=== PATIENT | female | born 1960 | race Hispanic/Latino ===

== ENCOUNTER 2020-02-10 14:13 | Emergency (ER) | payer BC ==
[2020-02-10 15:12] LABS: APPEARANCE,URINE Clear (CLEAR); BILIRUBIN,URINE Negative (NEGATIVE); COLOR,URINE Yellow (YELLOW); GLUCOSE, URINE (UA) Negative (NEGATIVE); KETONES,URINE Negative (NEGATIVE); LEUKOCYTE ESTERASE ,URINE Negative (NEGATIVE); NITRATE,URINE Negative (NEGATIVE); OCCULT BLOOD,URINE Negative (NEGATIVE); PH,URINE 7.5 (5.0-8.0); PROTEIN,URINE POS 2+ mg/dL (NEGATIVE)
[2020-02-10 15:31] LABS: BACTERIA,URINE Rare /HPF (None Seen); RBC,URINE None Seen /HPF (0-1); SQUAMOUS EPITHELIAL CELL,UR None Seen /HPF (0-2); WBC,URINE 0-1 /HPF (0-1)
[2020-02-10] MEDS ORDERED: KETOROLAC TROMETHAMINE 30MG/ML ONE (15:35)
[2020-02-10 16:11] LABS: BASOPHILS % (AUTO) 0.5 % (0.0-5.0); HEMATOCRIT 37.4 % (36-48); LYMPHOCYTES % (AUTO) 11.6 % (21.0-51.0); MEAN CORPUSCULAR HEMOGLOBIN 33.4 pg (27.0-33.0); MEAN CORPUSCULAR HGB CONC 35.8 g/dL (32.0-36.0); MEAN CORPUSCULAR VOLUME 93.3 fL (79-99); MONOCYTES % (AUTO) 5.6 % (3.0-13.0); NEUTROPHILS % (AUTO) 80.8 % (40.0-77.0); PLATELET COUNT (AUTO) 125 K/uL (130-400); RED BLOOD CELL COUNT(AUTO) 4.01 MIL/uL (4.00-5.50); RED CELL DISTRIBUTION WIDTH 14.9 % (11.0-15.5); WHITE BLOOD COUNT (AUTO) 10.1 K/uL (4.8-10.8)
[2020-02-10 16:17] LABS: CREATININE 0.9 mg/dL (0.5-1.5); POTASSIUM 3.8 mmol/L (3.5-5.1)
[2020-02-10 16:21] LABS: ALBUMIN 3.7 g/dL (3.5-5.0); BILIRUBIN,TOTAL 0.5 mg/dL (0.2-1.0); TOTAL PROTEIN, SERUM 7.9 g/dL (6.0-8.3)
[2020-02-10] MEDS ORDERED: SODIUM CHLORIDE 0.9% 1000ML 1,000 ML IV ONE (17:27)
[2020-02-10] MEDS ORDERED: TAMSULOSIN HCL 0.4 MG CAP.ER.24H ONE (17:28)
== END 2020-02-10 19:03 | disposition home or self-care (01) ==
LOC: EDH 14:13
DX: N13.30 Unspecified hydronephrosis (principal)
CPT/HCPCS: 36415; 74176; 76705; 76770; 80053; 81001; 85025; 96360; 96372; 99285; J1885; J7030

== ENCOUNTER 2024-12-16 16:03 | Inpatient (IN) | payer BC ==
[~2024-12-16] VITALS: Ht 162.6 cm; Wt 129.7 kg
[2024-12-16 17:15] LABS: IMMATURE GRANULOCYTE ABSOLUTE 0.03 K/uL (0-1); NUCLEATED RED BLOOD CELLS 0.0 % (0.0-0.19); PLATELET COUNT (AUTO) 134 K/uL (130-400); RED BLOOD CELL COUNT(AUTO) 4.85 MIL/uL (4.00-5.50); RED CELL DISTRIBUTION WIDTH 13.6 % (11.0-15.5); WHITE BLOOD COUNT (AUTO) 7.7 K/uL (4.8-10.8)
[2024-12-16 17:30] LABS: CREATININE 0.9 mg/dL (0.5-1.0); GLOMERULAR FILTR. RATE CALC 71.0 mL/min (>90); GLUCOSE,RANDOM 90.0 mg/dL (70-105); SODIUM SERUM 141.0 mmol/L (136-145); UREA NITROGEN, BLOOD 14.0 mg/dL (7-18)
--- NOTE | 2024-12-16 17:31 | HMCIMG ---
EXAM: Chest radiograph 1 view HISTORY: Dizziness COMPARISON: None FINDINGS: No pulmonary consolidations. No pleural effusion or pneumothorax. Normal cardiomediastinal silhouette and pulmonary vasculature. No suspicious osseous lesions. IMPRESSION: No acute cardiopulmonary disease. /[place]
--- NOTE | 2024-12-16 19:15 | HMCIMG ---
EXAM: CT Head without IV Contrast. CLINICAL HISTORY: Dizziness. TECHNIQUE: Axial computed tomography images of the head/brain without intravenous contrast. COMPARISON: None provided. FINDINGS: BRAIN: No evidence of acute hemorrhage. No midline shift or extra-axial collections. Mild encephalomalacia with surrounding gliosis in the left temporal lobe. Ill-defined hypodensities with loss of olmedo-white matter differentiation in the bilateral frontal lobes. No CT evidence for an acute infarction. VENTRICLES: No hydrocephalus. ORBITS: The orbits are unremarkable. SINUSES AND MASTOIDS: The paranasal sinuses and mastoid air cells are clear. BONES: No fracture. SOFT TISSUES: Unremarkable. IMPRESSION: * No acute intracranial hemorrhage, or CT evidence for an acute infarct. If clinical concern persist recommend MRI of the brain for further evaluation. * Mild encephalomalacia with surrounding gliosis in the left temporal lobe, likely sequela of prior insult. * Ill-defined hypodensities in the bilateral frontal lobes with loss of olmedo-white matter differentiation, compatible chronic microvascular ischemic disease. /[place]
[2024-12-16] MEDS: 0.9%NACL 1000ML 1,000 ML IV ONE (19:57)
[2024-12-16] MEDS: ASPIRIN 325MG TAB PO ONE (20:07)
--- NOTE | 2024-12-16 21:18 | HP ---
[facility] HISTORY AND PHYSICAL Date of Service: Dec 16, 2024 Time of Service: 21:18 Attending/supervising physicians: Dr. Napoles and Dr. Bai HISTORY OF PRESENT ILLNESS: Ms. Ochoa is a 64-year-old female with a history of hypertension who presented to [facility] ED for evaluation of dizziness onset Sunday night. She stated that the symptoms improved but then around 1:00pm she started to feel dizzy again. She stated that the dizziness worsened when she moved around. She reported a sensation and the room spinning. In the ED the patient report the dizziness had been resolved. She denied any chest pain, shortness of breath,head trama, or fever. Three years ago she was hospitalized for cellulitis of her right lower leg and she was started on anti hypertensive medication then. She reports she stopped her medication because it was causing swelling to her lips, but she never followed up with PCP to change her medications. VS: HR 93 bpm, RR 19 bmp, BP 184/102, 99%, 98.4 F. Labs: Chemistry: Troponin 83, Hematology: MPV13.7, Urine: UA: Occult Blood Small, UA: Negative Nitrate, + Leukocyte Est, UA: WBC 26-50, UDS Negative, Head CT: No acute intracranial hemorrhage, or CT evidence for an acute infarct. If clinical concern persist r ecommend MRI of the brain for further evaluation. Mild encephalomalacia with surrounding gliosis in the left temporal lobe, likely sequela of prior insult. Ill-defined hypodensities in the bilateral frontal lobes with loss of lomedo-white matter differentiation, compatible chronic microvascular ischemic disease. Chest X-Ray: No acute cardiopulmonary disease. In ED the patient received hydralazine 10 mg IV, meclizine 25 mg, NS L bolus, aspirin 325 mg. ED provider requested patient be admitted to the hospital with the diagnosis of hypertensive emergency and elevated troponin. I assessed the patient at bedside in room number ED 18. The patient was sitting on the chair. Breathing was even, unlabored, in no distress. Patient denied chest pain, shortness of breath, any other pain, problem or concern. No redness to the right lower leg where she had recent cellulitis. I informed her of labs, diagnostics, and plan of care. Plan and assessment are listed below. REVIEW OF SYSTEMS 12-point ROS reviewed with the patient. All pertinent positives mentioned above. Otherwise negative, noncontributory, non-pertinent. PAST MEDICAL HISTORY: As mentioned above PAST SURGICAL HISTORY: None PAST SOCIAL HISTORY: Denied alcohol, tobacco, illicit drug use FAMILY HISTORY: Noncontributory Coded Allergies: No Known Drug Allergies (Unverified Allergy, Unknown, 12/16/24) PHYSICAL EXAM GENERAL APPEARANCE: The patient is awake, alert, and oriented, in no acute cardiopulmonary distress. NEUROLOGICAL: Cranial nerves II-XII grossly intact. Motor is 5/5 in bilateral upper and lower extremities proximal to distal. No sensory deficits. HEENT: Face is symmetric. Pupils are equal and reactive. Extraocular movements are intact. NECK: Supple. No JVD. No thyromegaly. No submental, submandibular, pre- /postauricular, occipital or supraclavicular lymphadenopathy. CHEST: Normal chest expansion. No Telemetry. LUNGS: Absence of any rales, rhonchi or any wheezing. CARDIOVASCULAR: Regular. S1 and S2 normal. No appreciable rubs, murmurs or gallops. ABDOMEN: Soft, nontender, obesity, and nondistended. There is no rebound, voluntary guarding, or rigidity. : Deferred. No Waite. EXTREMITIES: Non-edematous and not cyanotic. No clubbing. Good capillary refill. SKIN: No skin breakdown. Vital Sign (Last 24 Hours) 12/16/24 12/16/24 19:48 19:55 Temp 98.2 Pulse 99 Resp 20 B/P (MAP) 173/103 Pulse Ox 99 O2 Delivery Room Air* O2 Flow Rate 0 FiO2 21 LABS: Laboratory: Test 12/16/24 18:28 12/16/24 16:44 Range/Units Troponin I High Sensitivity 80 *H 4-50 ng/L White Blood Count 7.7 4.8-10.8 K/uL Red Blood Count 4.85 4.00-5.50 MIL/uL Hemoglobin 14.1 12.0-16.0 g/dL Hematocrit 42.9 36-48 % Mean Corpuscular Volume 88.5 79-99 fL Mean Corpuscular Hemoglobin 29.1 27.0-33.0 pg Mean Corpuscular Hemoglobin Concent 32.9 32.0-36.0 g/dL Red Cell Distribution Width 13.6 11.0-15.5 % Platelet Count 134 130-400 K/uL Mean Platelet Volume 13.7 H 7.5-10.5 fL Immature Granulocyte % (Auto) 0.4 0-1 % Neutrophils (%) (Auto) 68.3 40.0-77.0 % Lymphocytes (%) (Auto) 18.1 L 21.0-51.0 % Monocytes (%) (Auto) 9.6 3.0-13.0 % Eosinophils (%) (Auto) 3.1 0.0-8.0 % Basophils (%) (Auto) 0.5 0.0-5.0 % Neutrophils # (Auto) 5.2 1.8-7.7 K/uL Lymphocytes # (Auto) 1.4 1.0-4.8 K/uL Monocytes # (Auto) 0.7 0.1-1.0 K/uL Eosinophils # (Auto) 0.24 0.00-0.70 K/uL Basophils # (Auto) 0.04 0.00-0.20 K/uL Absolute Immature Granulocyte (auto 0.03 0-1 K/uL Nucleated Red Blood Cells 0.0 0.0-0.19 % Sodium Level 141 136-145 mmol/L Potassium Level 3.8 3.5-5.1 mmol/L Chloride Level 104 101-111 mmol/L Carbon Dioxide Level 29 21-32 mmol/L Blood Urea Nitrogen 14 7-18 mg/dL Creatinine 0.9 0.5-1.0 mg/dL Glomerular Filtration Rate Calc 71 >90 mL/min Random Glucose 90 70-105 mg/dL Total Calcium 8.6 8.5-10.1 mg/dL DIAGNOSTICS / RADIOLOGY: [ ] ASSESSMENT: Acute dizziness, POA Hypertensive emergency, POA Elevated troponins, POA, rule out ACS Acute complicated cystitis, POA Mild encephalomalacia with surrounding gliosis in the left temporal lobe, likely sequela of prior insult, per CT on 12/16/2024 Ill-defined hypodensities in the bilateral frontal lobes with loss of olmedo-white matter differentiation, compatible chronic microvascular ischemic disease, per CT on 12/16/2024 Acute on chronic kidney disease, GFR71 (last record GFR 68 on 02/10/2020) Noncompliance with hypertensive medications, POA Morbid obesity, BMI 49.0 PLAN: -Admit to medical floor with continuous telemetry monitoring and fall precautions. -Troponin levels and EKG series. -Cardiology consult in the am. -2D echo in a.m. with heart clinic to read. -Carotid Dopplers. -Nitroglycerin in q.8 hours. -Aspirin 81 mg p.o. daily. -Atorvastatin 40 mg PO daily. -Education on antihypertensive compliance. -Neuro checks every 4 hours. -MR brain without contrast, MR neck without contrast, MRA head without contrast. -PRN medications for pain management, fever, N/V, constipation, hypertension. -Oxygen supplement as needed to maintain oxygen levels equal to or greater than 92% -Blood pressure checks every 4 hours and as needed. -Reconcile home medications once available. -Glucometer checks before meals and at bedtime with insulin regular sliding scale. -Blood pressure checks every 4 hours and as needed. -Monitor renal and liver function. -Monitor electrolytes and treat accordingly PRN -AM labs. -GI and DVT prophylaxis -Further plan/orders per hospitalization course. ADVANCED CARE PLANNING 1. Which of the following were discussed? Hospice Care - No Therapeutic options - Yes Advance Directives - Yes Other discussions - 2. Discussed with who? The patient 3. Voluntary nature of this service was explained to the patient? Yes 4. Amount of time spent - __ over 35 minutes 5. Reviewed by Physician? (if this service was performed by YISSEL) Yes ATTESTATION BY PHYSICIAN I have seen and examined the patient. I reviewed the documentation, medical decision making, and treatment plan as noted by the YISSEL above. I agree with the findings and plan of care. JUVENAL SHAIKH ORDER CHECKER Dec 16, 2024 21:18
[2024-12-16 21:58] LABS: APPEARANCE,URINE CLEAR (CLEAR); GLUCOSE, URINE (UA) NEGATIVE (NEGATIVE); LEUKOCYTE ESTERASE ,URINE 500 Leu/uL (NEGATIVE); NITRATE,URINE NEGATIVE (NEGATIVE); OCCULT BLOOD,URINE SMALL (NEGATIVE)
[2024-12-16 21:59] LABS: ADD UA MICROSCOPIC YES
[2024-12-16 22:01] LABS: SQUAMOUS EPITHELIAL CELL,UR RARE /HPF (0-2)
[2024-12-16 22:11] LABS: AMPHET/METH SCREEN,URINE NEGATIVE (NEGATIVE); BARBITURATE SCREEN, URINE NEGATIVE (NEGATIVE); CANNABINOID SCREEN,URINE NEGATIVE (NEGATIVE); COCAINE SCREEN,URINE NEGATIVE (NEGATIVE)
[2024-12-16] MEDS ORDERED: LACTULOSE 20 GM/30 ML UDCUP PO PRN (22:30)
[2024-12-16 23:00] VITALS: BP 168/92; PULSE 87; RESP 15; TEMP 98.5
--- NOTE | 2024-12-16 23:15 | ERN ---
ED Note History of Present Illness Stated Complaint: DIZZINESS, ELEVATED TROP R/O ACS Chief Complaint: Dizzy/Light Headed Time Seen by MD: 17:10 Time Seen by Midlevel: 17:10 Dictation: The patient is a 64-year-old female with a history of hypertension, not currently on any medication who presents to the emergency department with complaints of dizziness. Patient reports that symptoms again Sunday night and improved but today after lunch around 1:00 p.m. she started with the dizziness again. Patient reports dizziness is worse with movement and reports a sensation of the room spinning. During assessment the patient reports that dizziness has resolved. Patient denies any chest pain or shortness of breath. Denies any head trauma. Denies any fevers. Patient reports that three years ago she was hospitalized for cellulitis and she was started on anti hypertensive medication but reports she stopped her medication because it was causing her swelling to her lips but never followed up with PCP to change her medications. Allergies: Coded Allergies: No Known Drug Allergies (Unverified Allergy, Unknown, 12/16/24) Past Medical History Past Medical History: No Pertinent History Additional Past Medical Hx: denies pmhx Surgical History: None RN Note Reviewed/Agreed w/PFSH: Yes Review of System Dictation Constitutional: Negative for fever,chills, and weight loss Eyes: Negative for injury, pain,redness, and discharge ENT: Negative for injury,pain or swelling Cardiovascular: Negative for chest pain, palpitations, and edema Respiratory: Negative for shortness of breath, cough, and wheezing, Abdomen/GI: Negative for abdominal pain, nausea, vomiting, diarrhea, and constipation Back: Negative for injury and pain : Negative for injury, bleeding and discharge MS/Extremity: Negative for injury and deformity Skin: Negative for rash, and discoloration Neuro: Negative for headache, weakness, numbness, tingling, and seizure positive for dizziness Psych: Negative for suicide ideation, homicidal ideation, and hallucinations Initial Vital Sign VS Vital Signs Date Time Temp Pulse Resp B/P (MAP) Pulse Ox O2 Delivery O2 Flow Rate FiO2 12/16/24 16:05 98.4 80 20 218/ 97 Room Air 0 12/16/24 16:08 21 Physical Exam Dictation Vital Signs reviewed General Appearance: Alert, oriented x 3, no acute distress, well developed, nourished. Head and Face: non-traumatic. Eyes: PERRL, pink conjunctivas, eyelid no trauma, anterior chamber with arcus senilis. Ears: Pinnas intact and no signs of trauma or erythema ear canals clear and no discharge TM no erythema Nose: No discharge, no bleeding. Oropharynx: Mouth normal, tongue pink. pharynx clear,no erythema, tonsils no exudates, no abscesses noted, mucous membrane moist Neck: Supple, non-tender, no thyromegaly, no masses, no JVD, no bruits Breast:Deferred Chest:No tenderness, no crepitus, no paradoxical movement, no retractions Lungs:Clear, well-ventilated, symmetric, no rales, no wheezing, no rhonchi, no stridor, good breath sounds bilaterally Heart: Regular rate, regular rhythm, no murmur, no gallops Vascular: no peripheral edema, Abdomen: Soft, positive bowel sounds, nondistended, no guarding, nontender, no rebound, no masses no hepatomegaly, no splenomegaly, no Doherty's sign, no hernias. Rectal: Deferred Genital: Deferred Neurological: Normal speech, motor function intact, sensory function intact , upper extremities equal in strength, lower extremities equal in strength, no slurred speech, no facial droop Musculoskeletal: Neck nontender, full range of motion, back nontender, full range of motion, Extremities: nontender, full range of motion Skin: Color pink, dry, no turgor, no rash, no lacerations, no abrasions, no contusions. Lymphatic: Deferred Results (Laboratory/Radiology) Laboratory/Radiology Laboratory Tests Test 12/16/24 16:44 12/16/24 18:28 12/16/24 21:48 White Blood Count 7.7 K/uL (4.8-10.8) Red Blood Count 4.85 MIL/uL (4.00-5.50) Hemoglobin 14.1 g/dL (12.0-16.0) Hematocrit 42.9 % (36-48) Mean Corpuscular Volume 88.5 fL (79-99) Mean Corpuscular Hemoglobin 29.1 pg (27.0-33.0) Mean Corpuscular Hemoglobin Concent 32.9 g/dL (32.0-36.0) Red Cell Distribution Width 13.6 % (11.0-15.5) Platelet Count 134 K/uL (130-400) Mean Platelet Volume 13.7 fL (7.5-10.5) H Immature Granulocyte % (Auto) 0.4 % (0-1) Neutrophils (%) (Auto) 68.3 % (40.0-77.0) Lymphocytes (%) (Auto) 18.1 % (21.0-51.0) L Monocytes (%) (Auto) 9.6 % (3.0-13.0) Eosinophils (%) (Auto) 3.1 % (0.0-8.0) Basophils (%) (Auto) 0.5 % (0.0-5.0) Neutrophils # (Auto) 5.2 K/uL (1.8-7.7) Lymphocytes # (Auto) 1.4 K/uL (1.0-4.8) Monocytes # (Auto) 0.7 K/uL (0.1-1.0) Eosinophils # (Auto) 0.24 K/uL (0.00-0.70) Basophils # (Auto) 0.04 K/uL (0.00-0.20) Absolute Immature Granulocyte (auto 0.03 K/uL (0-1) Nucleated Red Blood Cells 0.0 % (0.0-0.19) Sodium Level 141 mmol/L (136-145) Potassium Level 3.8 mmol/L (3.5-5.1) Chloride Level 104 mmol/L (101-111) Carbon Dioxide Level 29 mmol/L (21-32) Blood Urea Nitrogen 14 mg/dL (7-18) Creatinine 0.9 mg/dL (0.5-1.0) Glomerular Filtration Rate Calc 71 mL/min (>90) Random Glucose 90 mg/dL (70-105) Total Calcium 8.6 mg/dL (8.5-10.1) Troponin I High Sensitivity 83 ng/L (4-50) *H 80 ng/L (4-50) *H Urine Color COLORLESS (YELLOW) Urine Appearance CLEAR (CLEAR) Urine pH 6.5 (5.0-8.0) Urine Specific [place] 1.004 (1.001-1.031) Urine Protein NEGATIVE mg/dL (NEGATIVE) Urine Glucose (UA) NEGATIVE mg/dL (NEGATIVE) Urine Ketones NEGATIVE mg/dL (NEGATIVE) Urine Occult Blood SMALL (NEGATIVE) H Urine Nitrate NEGATIVE (NEGATIVE) Urine Bilirubin NEGATIVE mg/dL (NEGATIVE) Urine Urobilinogen 0.2 mg/dL (0.2-1.0) Urine Leukocyte Esterase 500 Gareth/uL (NEGATIVE) H Urine RBC 0-1 /HPF (0-1) Urine WBC 26-50 /HPF (0-1) H Urine Squamous Epithelial Cells RARE /HPF (0-2) Urine Bacteria RARE /HPF (None Seen) Urine Opiates Screen NEGATIVE (NEGATIVE) Urine Barbiturates Screen NEGATIVE (NEGATIVE) Urine Phencyclidine Screen NEGATIVE (NEGATIVE) Urine Amphetamines Screen NEGATIVE (NEGATIVE) Urine Benzodiazepines Screen NEGATIVE (NEGATIVE) Urine Cocaine Screen NEGATIVE (NEGATIVE) Urine Marijuana (THC) Screen NEGATIVE (NEGATIVE) REASON: dizzy ORDERING PHYSICIAN: JEREMY GELLER PROCEDURE: HEAD WO - CT HEAD/BRAIN W/O CONTRAST EXAM: CT Head without IV Contrast. CLINICAL HISTORY: Dizziness. TECHNIQUE: Axial computed tomography images of the head/brain without intravenous contrast. COMPARISON: None provided. FINDINGS: BRAIN: No evidence of acute hemorrhage. No midline shift or extra-axial collections. Mild encephalomalacia with surrounding gliosis in the left temporal lobe. Ill-defined hypodensities with loss of olemdo-white matter differentiation in the bilateral frontal lobes. No CT evidence for an acute infarction. VENTRICLES: No hydrocephalus. ORBITS: The orbits are unremarkable. SINUSES AND MASTOIDS: The paranasal sinuses and mastoid air cells are clear. BONES: No fracture. SOFT TISSUES: Unremarkable. IMPRESSION: * No acute intracranial hemorrhage, or CT evidence for an acute infarct. If clinical concern persist recommend MRI of the brain for further evaluation. * Mild encephalomalacia with surrounding gliosis in the left temporal lobe, likely sequela of prior insult. * Ill-defined hypodensities in the bilateral frontal lobes with loss of olmedo-white matter differentiation, compatible chronic microvascular ischemic disease. /[place] REASON: DIZZINESS ORDERING PHYSICIAN: ARTHUR ERIC MD PROCEDURE: CXR1VW - CHEST 1VW EXAM: Chest radiograph 1 view HISTORY: Dizziness COMPARISON: None FINDINGS: No pulmonary consolidations. No pleural effusion or pneumothorax. Normal cardiomediastinal silhouette and pulmonary vasculature. No suspicious osseous lesions. IMPRESSION: No acute cardiopulmonary disease. /[place] Labs Reviewed?: Yes EKG: (+) rhythm (Sinus rhythm) EKG Comment: Date:12/16/2024 Time:165 Ventricular rate:77 VT interval:182 QRS duration:105 QT/QTc:403/456 EKG interpretation: Sinus rhythm, left ventricular hypertrophy, anterior Q- waves Reviewed by ED Attending Date:12/16/2024 Time:1810 Ventricular rate:67 VT interval:183 QRS duration:112 QT/QTc:388/411 EKG interpretation: Sinus rhythm, nonspecific T-wave abnormalities, anterior heel raise Reviewed by ED Attending ED Course ED Course Orders Procedure Category Date Status Time Cbc With Differential LAB 12/16/24 Complete 16:21 Basic Metabolic Panel LAB 12/16/24 Complete 16:21 12 Lead Ekg Tracing- EKG 12/16/24 Logged Technical 16:21 Urinalysis Profile LAB 12/16/24 Logged 16:21 Troponin I High LAB 12/16/24 Complete Sensitivity 16:21 Chest 1vw RAD 12/16/24 Resulted 16:21 Ct Head/Brain W/O CT 12/16/24 Resulted Contrast 17:32 Orthostatic Vital CPOE 12/16/24 Transmitted Signs 17:32 Hydralazine 20mg Inj PHA 12/16/24 Complete (Apresoline 20mg In 18:00 Meclizine Hcl 25 Mg PHA 12/16/24 Complete (Antivert 25 Mg) 18:00 0.9%Nacl 1000ml (Ns PHA 12/16/24 Complete 1000ml) 18:00 Troponin I High LAB 12/16/24 Complete Sensitivity 18:08 12 Lead Ekg Tracing- EKG 12/16/24 Logged Technical 18:08 Aspirin 325mg Tab PHA 12/16/24 Complete (Aspirin 325mg Tab) 20:00 Edm Admit Bridge Order ADM 12/16/24 Transmitted 21:08 Admit Orders ADM 12/16/24 Transmitted 21:08 Drug Screen Urine LAB 12/16/24 Complete 21:10 Urinalysis Profile LAB 12/16/24 Complete 21:10 Culture Urine GENTRY 12/16/24 In Process 21:59 Vital Signs Every 4 CPOE 12/16/24 Transmitted Hours 22:25 Daily Weights CPOE 12/16/24 Transmitted 22:25 Activity: Ambulate W/ CPOE 12/16/24 Transmitted Assist 22:25 Heart Healthy Diet DIET 12/17/24 Transmitted Breakfast O2 Order RT 12/16/24 Transmitted 22:25 Cbc Without LAB 12/17/24 In Process Differential 04:00 Basic Metabolic Panel LAB 12/17/24 In Process 04:00 Magnesium LAB 12/17/24 In Process 04:00 Phosphorus LAB 12/17/24 In Process 04:00 Thyroid Stimulating LAB 12/17/24 In Process Hormone 04:00 Echo 2-D Complete ECHO 12/16/24 Logged 22:25 Acetaminophen 325 Tab PHA 12/16/24 In Process (Tylenol 325mg Tab 22:30 Acetaminophen 650mg PHA 12/16/24 In Process Supp (Tylenol 650mg 22:30 Lactulose 20 Gm/30 Ml PHA 12/16/24 In Process Udcup (Constulose 22:30 Docusate Sodium 100 PHA 12/16/24 In Process Mg Cap (Colace 100mg 22:30 Temazepam 15 Mg Cap PHA 12/16/24 In Process (Restoril 15 Mg Cap) 22:30 Ondansetron 4mg Inj PHA 12/16/24 In Process (Zofran 4mg Inj) 22:30 Labetalol 20mg Syg PHA 12/16/24 In Process (Trandate 20mg Syg) 22:30 Morphine 4mg Syg PHA 12/16/24 In Process (Morphine 4mg Syg) 22:30 Initiate JOSE 12/16/24 In Process Hyperglycemia Protoco 22:25 Insulin Regular, PHA 12/17/24 In Process Human 3ml (Humulin R 07:30 Nitroglycerin 1gm PHA 12/16/24 In Process Oint (Nitroglycerin 1g 22:30 12 Lead Ekg Tracing- EKG 12/17/24 Logged Technical 04:00 Hemoglobin A1c LAB 12/17/24 In Process 04:00 Troponin I High LAB 12/17/24 Logged Sensitivity 00:01 Troponin I High LAB 12/17/24 Logged Sensitivity 06:01 Labetalol 20mg Syg PHA 12/17/24 Logged (Trandate 20mg Syg) 01:00 Current Medications Medications (Trade) Dose Ordered Sig/Norris Route PRN Reason Start Time Stop Time Status Last Admin Dose Admin Aspirin (Aspirin 325mg Tab) 325 mg ONCE ONCE PO 12/16/24 20:00 12/16/24 20:02 DC 12/16/24 20:07 Hydralazine HCl (APRESOLine 20MG INJ) 10 mg ONCE ONCE IV 12/16/24 18:00 12/16/24 18:01 DC 12/16/24 19:58 Meclizine HCl (ANTIvert 25 mg) 25 mg ONCE ONCE PO 12/16/24 18:00 12/16/24 18:01 DC 12/16/24 19:58 Sodium Chloride 1,000 ml @ 0 mls/hr ONCE ONCE IV 12/16/24 18:00 12/16/24 18:01 DC 12/16/24 19:57 Vital Signs Date Time Temp Pulse Resp B/P (MAP) Pulse Ox O2 Delivery O2 Flow Rate FiO2 12/16/24 19:55 99 20 173/103 99 Room Air* 0 12/16/24 19:50 93 19 184/102 99 Room Air* 0 12/16/24 19:48 98.2 63 18 181/87 99 Room Air* 0 12/16/24 16:08 98.4 80 20 218/93 97 Room Air* 0 12/16/24 16:05 98.4 80 20 218/ 97 Room Air 0 HEART Score Response (Comments) Value History: Low suspicion (0) 0 EKG: Repolarization changes 1 Age: 45-65yrs (+1) 1 Risk Factors: 1-2 risk factors (+1) 1 Initial Troponin: 1-3x Normal Limit (+1) 1 Total 4 Medical Decision Making MDM MDM: The patient is a 64-year-old female with a history of hypertension, not currently on any medication who presents to the emergency department with complaints of dizziness. Patient reports that symptoms again Sunday night and improved but today after lunch around 1:00 p.m. she started with the dizziness again. Patient reports dizziness is worse with movement and reports a sensation of the room spinning. During assessment the patient reports that dizziness has resolved. Patient denies any chest pain or shortness of breath. Denies any head trauma. Denies any fevers. Patient reports that three years ago she was hospitalized for cellulitis and she was started on anti hypertensive medication but reports she stopped her medication because it was causing her swelling to her lips but never followed up with PCP to change her medications. CBC showed no leukocytosis, no anemia, chemistry showed no electrolyte imbalance, troponin initial 83, repeat troponin 80. Patient with no chest pain. Patient's EKG was abnormal. CT head showed no acute intracranial bleeding or acute infarct. Patient continues neurologically intact. No facial droop, no extremity weakness or numbness. Patient with steady ambulatory gait. NIH 0. Patient with no longer having any dizziness. Chest x-ray showed no acute pathology. Patient will be admitted for further evaluation and management. EKG finding discussed with . Patient with no chest pain, recommends admission and cardiology consult. attempted to be contacted. Differential diagnosis: Hypertensive emergency, intracerebral hemorrhage, vertigo, dehydration, orthostatic hypotension Comorbidities: Hypertension Tests considered and not ordered secondary to shared decision making include: none Previous outside records reviewed: none Risk of complication and/or morbidity or mortality of patient management: The patient meets criteria for admission. Need for emergency major/minor surgery: No There are no social concerns with this patient. I independently interpreted the tests I ordered (labs, urinalysis, etc.). I discussed the case with the hospitalist for admission. Pamela DEY who accepts admission I discussed the case with the following specialists: none. Historian: pateint. I independently interpreted imaging studies and EKGs that I ordered (US, CT, XR, EKG, etc.). External chart review: none. Medical management and examination interpretation discussions were had by me with other qualified healthcare professionals as indicated for the patient's care. DX & DISP Disposition: Inpatient Decision to Admit Date: Dec 16, 2024 Decision to Admit Time: 21:08 Departure Impression: Primary Impression: Hypertensive emergency Additional Impression: Elevated troponin Condition: Stable Referrals: SELF,REFERRAL (PCP) I have reviewed the case, and I agree with, Diagnosis and Plan JEREMY GELLERP Dec 16, 2024 23:15
[2024-12-16] MEDS: NITROGLYCERIN 1GM OINT 1 INCH/1GM TD SCH (23:44)
[2024-12-17] VITALS (9 sets, daily range): BP systolic 130–158; BP diastolic 68–90; PULSE 59–78; RESP 15–20; TEMP 97.9–98.4; O2SAT 98–99
--- NOTE | 2024-12-17 05:36 | EKG ---
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[id number] Requested By: JEREMY GELLER Order Number: [id number] Reading MD: Neftaly Guzmán Measurements Intervals [place] Rate: 67 P: 37 [place]: 183 QRS: -54 QRSD: 112 T: 0 QT: 388 QTc: 411 Interpretive Statements Sinus rhythm LAD, consider left anterior fascicular block Left ventricular hypertrophy Anterior Q waves, possibly due to LVH Nonspecific T abnormalities, inferior leads ST elevation, consider inferior injury Compared to ECG 12/16/2024 16:51:18 T-wave abnormality now present ST (T wave) deviation still present Myocardial infarct finding still present Electronically Signed On 12-18-2024 17:29:38 CDT by Neftaly Guzmán Please click the below link to view image of tracing.
--- NOTE | 2024-12-17 05:36 | EKG ---
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
--- NOTE | 2024-12-17 05:40 | NUR ---
ADMISSION: PT RECEIVED FROM ER VIA STRETCHER, NO FAMILY AT BEDSIDE. PT STATES SHE CAME IN TO THE ER DUE TO SEVERE DIZZINESS. PT ALSO STATES SHE WAS GIVEN BLOOD PRESSURE MEDICATION TWO YEARS AGO BUT STOPPED TAKING IT AND DID NOT FOLLOW UP WITH A PRIMARY PROVIDER. PLACED TELE# 35 TO CHEST WALL, VOICES NO CHEST PAIN/DISCOMFORTS AT THE TIME. VOICES NO DIZZINESS AT THE MOMENT. IV .SL TO RIGHT HAND, NO REDNESS, NO SWELLING, NO TENDERNESS NOTED. PT STATES SHE DOES NOT TAKE ANY HOME MEDICATIONS. ORIENTED TO ROOM, SURROUNDINGS AND CALL LIGHT. ENCOURAGED TO USE CALL LIGHT FOR ASSISTANCE, CALL NGUYEN WITHIN REACH.
[2024-12-17 06:52] LABS: NUCLEATED RED BLOOD CELLS 0.0 % (0.0-0.19); PLATELET COUNT (AUTO) 111.0 K/uL (130-400); RED BLOOD CELL COUNT(AUTO) 4.37 MIL/uL (4.00-5.50); RED CELL DISTRIBUTION WIDTH 13.5 % (11.0-15.5); WHITE BLOOD COUNT (AUTO) 7.3 K/uL (4.8-10.8)
[2024-12-17 07:36] LABS: CREATININE 0.9 mg/dL (0.5-1.0); GLOMERULAR FILTR. RATE CALC 71.0 mL/min (>90); GLUCOSE,RANDOM 99.0 mg/dL (70-105); PHOSPHORUS 3.4 mg/dL (2.5-4.9); SODIUM SERUM 142.0 mmol/L (136-145); UREA NITROGEN, BLOOD 15.0 mg/dL (7-18)
--- NOTE | 2024-12-17 10:26 | NUR ---
DCP; RETURN HOME Pt and her son Luis Ochoa [phone] live in an apt. 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 Pt states she can complete ADLS and home management on her own. Pt needs no assist with DME, no provider HH or HD services. No PCP, community resources given Denies dc needs and will return home a dc. Addendum: 12/17/24 at 1031 by BRANDON CELESTE SS Amended: Links added.
[2024-12-17] MEDS: PoTASSium chloRIDE 20MEQ ER 20 MEQ ERTAB PO ONE ×2 (10:30→15:54)
--- NOTE | 2024-12-17 11:15 | NUR ---
attempted to bring patient for mris. pt refused exams citing anxiety.
--- NOTE | 2024-12-17 12:13 | PN ---
[facility] PROGRESS NOTE Date of Service: Dec 17, 2024 Time of Service: 12:[address] Napoles SUBJECTIVE: [ 12/16 Ms. Ochoa is a 64-year-old female with a history of hypertension who presented to [facility] ED for evaluation of dizziness onset Sunday night. She stated that the symptoms improved but then around 1:00pm she started to feel dizzy again. She stated that the dizziness worsened when she moved around. She reported a sensation and the room spinning. In the ED the patient report the dizziness had been resolved. She denied any chest pain, shortness of breath,head trama, or fever. Three years ago she was hospitalized for cellulitis of her right lower leg and she was started on anti hypertensive medication then. She reports she stopped her medication because it was causing swelling to her lips, but she never followed up with PCP to change her medications. VS: HR 93 bpm, RR 19 bmp, BP 184/102, 99%, 98.4 F. Labs: Chemistry: Troponin 83, Hematology: MPV13.7, Urine: UA: Occult Blood Small, UA: Negative Nitrate, + Leukocyte Est, UA: WBC 26-50, UDS Negative, Head CT: No acute intracranial hemorrhage, or CT evidence for an acute infarct. If clinical concern persist recommend MRI of the brain for further evaluation. Mild encephalomalacia with surrounding gliosis in the left temporal lobe, likely sequela of prior insult. Ill-defined hypodensities in the bilateral frontal lobes with loss of olmedo-white matter differentiation, compatible chronic microvascular ischemic disease. Chest X-Ray: No acute cardiopulmonary disease. In ED the patient received hydralazine 10 mg IV, meclizine 25 mg, NS L bolus, aspirin 325 mg. ED provider requested patient be admitted to the hospital with the diagnosis of hypertensive emergency and elevated troponin. I assessed the patient at bedside in room number ED 18. The patient was sitting on the chair. Breathing was even, unlabored, in no distress. Patient denied chest pain, shortness of breath, any other pain, problem or concern. No redness to the right lower leg where she had recent cellulitis. I informed her of labs, diagnostics, and plan of care. Plan and assessment are listed below. 12/17/24 patient was seen by nurse practitioner and physician during rounding in room 423. Chest x-ray is negative. Head CT showed no acute intracranial hemorrhage or any acute infarct. Mild encephalomalacia with surrounding gliosis in the left temporal lobe likely sequela of prior insult. Ill-defined hydro density in the bilateral frontal lobes with loss of olmedo white matter differentiation compatible chronic microvascular ischemic disease. MRI brain was ordered pending results. Ultrasound carotid was ordered pending results. 2D echo pending results. Patient also received 40 mEq of potassium. UA was positive for leukocytosis pending urine culture. Patient is also pending cardiology evaluation for elevated troponins. We will continue to monitor patient in the meantime. A.m. labs] REVIEW OF SYSTEMS 12-point ROS reviewed with the patient. All pertinent positives mentioned above. Otherwise negative, noncontributory, non-pertinent. PHYSICAL EXAM GENERAL APPEARANCE: The patient is awake, alert, and oriented, in no acute cardiopulmonary distress. NEUROLOGICAL: Cranial nerves II-XII grossly intact. Motor is 5/5 in bilateral upper and lower extremities proximal to distal. No sensory deficits. HEENT: Face is symmetric. Pupils are equal and reactive. Extraocular movements are intact. NECK: Supple. No JVD. No thyromegaly. No submental, submandibular, pre- /postauricular, occipital or supraclavicular lymphadenopathy. CHEST: Normal chest expansion. No Telemetry. LUNGS: Absence of any rales, rhonchi or any wheezing. CARDIOVASCULAR: Regular. S1 and S2 normal. No appreciable rubs, murmurs or gallops. ABDOMEN: Soft, nontender, obesity, and nondistended. There is no rebound, voluntary guarding, or rigidity. : Deferred. No Waite. EXTREMITIES: Non-edematous and not cyanotic. No clubbing. Good capillary refill. SKIN: No skin breakdown. Vital Signs (last 8hr) Date Time Temp Pulse Resp B/P (MAP) Pulse Ox O2 Delivery O2 Flow Rate FiO2 12/17/24 08:00 99 Room Air* 0 21 12/17/24 08:00 98.2 71 18 130/68 99 Room Air 12/17/24 05:40 97.9 63 20 157/89 98 Room Air 12/17/24 05:40 98 Room Air* 0 21 12/17/24 05:26 98.2 59 15 158/69 99 Room Air LABS: Laboratory: Test 12/17/24 11:38 12/17/24 06:29 12/16/24 21:48 12/16/24 16:44 Range/Units Whole Blood Glucose 96 70-110 MG/DL White Blood Count 7.3 4.8-10.8 K/uL Red Blood Count 4.37 4.00-5.50 MIL/uL Hemoglobin 12.7 12.0-16.0 g/dL Hematocrit 38.5 36-48 % Mean Corpuscular Volume 88.1 79-99 fL Mean Corpuscular Hemoglobin 29.1 27.0-33.0 pg Mean Corpuscular Hemoglobin Concent 33.0 32.0-36.0 g/dL Red Cell Distribution Width 13.5 11.0-15.5 % Platelet Count 111 L 130-400 K/uL Mean Platelet Volume 13.3 H 7.5-10.5 fL Nucleated Red Blood Cells 0.0 0.0-0.19 % Sodium Level 142 136-145 mmol/L Potassium Level 3.5 3.5-5.1 mmol/L Chloride Level 106 101-111 mmol/L Carbon Dioxide Level 29 21-32 mmol/L Blood Urea Nitrogen 15 7-18 mg/dL Creatinine 0.9 0.5-1.0 mg/dL Glomerular Filtration Rate Calc 71 >90 mL/min Random Glucose 99 70-105 mg/dL Total Calcium 8.4 L 8.5-10.1 mg/dL Phosphorus Level 3.4 2.5-4.9 mg/dL Magnesium Level 1.90 1.80-2.40 mg/dL Troponin I High Sensitivity 95 *H 4-50 ng/L Thyroid Stimulating Hormone (TSH) 1.91 0.36-3.74 uIU/mL Urine Color COLORLESS YELLOW Urine Appearance CLEAR CLEAR Urine pH 6.5 5.0-8.0 Urine Specific [place] 1.004 1.001-1.031 Urine Protein NEGATIVE NEGATIVE mg/dL Urine Glucose (UA) NEGATIVE NEGATIVE mg/dL Urine Ketones NEGATIVE NEGATIVE mg/dL Urine Occult Blood SMALL H NEGATIVE Urine Nitrate NEGATIVE NEGATIVE Urine Bilirubin NEGATIVE NEGATIVE mg/dL Urine Urobilinogen 0.2 0.2-1.0 mg/dL Urine Leukocyte Esterase 500 H NEGATIVE Gareth/uL Urine RBC 0-1 0-1 /HPF Urine WBC 26-50 H 0-1 /HPF Urine Squamous Epithelial Cells RARE 0-2 /HPF Urine Bacteria RARE None Seen /HPF Urine Opiates Screen NEGATIVE NEGATIVE Urine Barbiturates Screen NEGATIVE NEGATIVE Urine Phencyclidine Screen NEGATIVE NEGATIVE Urine Amphetamines Screen NEGATIVE NEGATIVE Urine Benzodiazepines Screen NEGATIVE NEGATIVE Urine Cocaine Screen NEGATIVE NEGATIVE Urine Marijuana (THC) Screen NEGATIVE NEGATIVE Immature Granulocyte % (Auto) 0.4 0-1 % Neutrophils (%) (Auto) 68.3 40.0-77.0 % Lymphocytes (%) (Auto) 18.1 L 21.0-51.0 % Monocytes (%) (Auto) 9.6 3.0-13.0 % Eosinophils (%) (Auto) 3.1 0.0-8.0 % Basophils (%) (Auto) 0.5 0.0-5.0 % Neutrophils # (Auto) 5.2 1.8-7.7 K/uL Lymphocytes # (Auto) 1.4 1.0-4.8 K/uL Monocytes # (Auto) 0.7 0.1-1.0 K/uL Eosinophils # (Auto) 0.24 0.00-0.70 K/uL Basophils # (Auto) 0.04 0.00-0.20 K/uL Absolute Immature Granulocyte (auto 0.03 0-1 K/uL Hemoglobin A1c 5.1 4.0-6.0 % Estimated Average Glucose (eAG) 100 70-126 mg/dL Current Medications Medications (Trade) Dose Ordered Sig/Norris Route PRN Reason Start Time Stop Time Status Last Admin Dose Admin Acetaminophen (TYLenol 325MG TAB) 650 mg Q6H PRN PO FEVER/MILD PAIN LEVEL 1-3 12/16/24 22:30 01/15/25 22:29 12/17/24 09:06 650 MG Acetaminophen (TYLenol 650MG SUPPOSITORY) 650 mg Q6H PRN RC FEVER / MILD PAIN 1-3 IF NPO 12/16/24 22:30 01/15/25 22:29 Aspirin (Aspirin 81mg Chew Tab) 81 mg DAILY PO 12/17/24 09:30 01/16/25 09:29 Atorvastatin Calcium (LIPItor 40MG) 40 mg HS PO 12/17/24 21:00 01/16/25 20:59 Ceftriaxone Sodium (Rocephin 2gm Inj) 2 gm Q24H IVPB 12/17/24 09:30 12/27/24 09:29 Docusate Sodium (COLace 100MG CAP) 100 mg BID PRN PO c 12/16/24 22:30 01/15/25 22:29 Famotidine (Pepcid 20mg Tab) 20 mg BID PO 12/17/24 09:30 01/16/25 09:29 Heparin Sodium (Porcine) (HEParin 5,000 UNIT VIAL) 5,000 unit Q12H SQ 12/17/24 09:30 01/16/25 09:29 Insulin Human Regular (humuLIN R 100 UNIT/ML 3ML) INSULIN SLIDING SCAL... ACHS SQ 12/17/24 07:30 01/16/25 07:29 Labetalol HCl (TRANdate 20MG SYG) 10 mg Q2H PRN IV SBP GREATER THAN 180 12/16/24 22:30 12/17/24 01:09 DC Labetalol HCl (TRANdate 20MG SYG) 10 mg Q2HPRN PRN IV IF SBP GREATER THAN 160 12/17/24 01:00 01/16/25 00:59 Lactulose (Constulose 20gm/ 30ml Udcup) 20 gm Q6H PRN PO CONSTIPATION 12/16/24 22:30 01/15/25 22:29 Morphine Sulfate (morPHINE 4MG SYG) 4 mg Q4H PRN IVP SEVERE PAIN (7-10) 12/16/24 22:30 12/23/24 22:29 Nitroglycerin (Nitroglycerin 1gm Oint) 1 inch Q8H TD 12/16/24 22:30 01/15/25 22:29 12/17/24 06:32 1 INCH Ondansetron HCl (zoFRAN 4MG INJ) 4 mg Q6H PRN IVP NAUSEA/VOMITING 12/16/24 22:30 01/15/25 22:29 Temazepam (restORIL 15 MG CAP) 15 mg HS PRN PO INSOMNIA/SLEEP 12/16/24 22:30 01/15/25 22:29 DIAGNOSTICS / RADIOLOGY: [ ] ASSESSMENT: Acute dizziness, POA Hypertensive emergency, POA Elevated troponins, POA, rule out ACS Acute complicated cystitis, POA Mild encephalomalacia with surrounding gliosis in the left temporal lobe, likely sequela of prior insult, per CT on 12/16/2024 Ill-defined hypodensities in the bilateral frontal lobes with loss of olmedo-white matter differentiation, compatible chronic microvascular ischemic disease, per CT on 12/16/2024 Acute on chronic kidney disease, GFR71 (last record GFR 68 on 02/10/2020) Noncompliance with hypertensive medications, POA Morbid obesity, BMI 49.0 PLAN: -Admit to medical floor with continuous telemetry monitoring and fall precautions. -Troponin levels and EKG series. Chest x-ray is negative. Head CT showed no acute intracranial hemorrhage or any acute infarct. Mild encephalomalacia with surrounding gliosis in the left temporal lobe likely sequela of prior insult. Ill-defined hydro density in the bilateral frontal lobes with loss of olmedo white matter differentiation compatible chronic microvascular ischemic disease. MRI brain was ordered pending results. Ultrasound carotid was ordered pending results. 2D echo pending results. Patient also received 40 mEq of potassium. UA was positive for leukocytosis pending urine culture. Patient is also pending cardiology evaluation for elevated troponins. -Nitroglycerin in q.8 hours. -Aspirin 81 mg p.o. daily. -Atorvastatin 40 mg PO daily. -Education on antihypertensive compliance. -Neuro checks every 4 hours. -PRN medications for pain management, fever, N/V, constipation, hypertension. -Oxygen supplement as needed to maintain oxygen levels equal to or greater than 92% -Blood pressure checks every 4 hours and as needed. -Reconcile home medications once available. Nursing communication placed to obtain home meds by nursing 12/17/2024 -Glucometer checks before meals and at bedtime with insulin regular sliding scale. -Blood pressure checks every 4 hours and as needed. -Monitor renal and liver function. -Monitor electrolytes and treat accordingly PRN -AM labs. -GI and DVT prophylaxis -Further plan/orders per hospitalization course. ATTESTATION BY PHYSICIAN I have seen and examined the patient. I reviewed the documentation, medical decision making, and treatment plan as noted by the mid-level provider above. I agree with the findings and plan of care. PRATIMA NAPOLES MD, KATARZYNA B FUR BLOWER OPERATOR Dec 17, 2024 12:13
[2024-12-17] MEDS: ASPIRIN 81MG CHEW TAB PO SCH (15:32)
[2024-12-17] MEDS: FAMOTIDINE 20MG TAB PO SCH (15:32)
--- NOTE | 2024-12-17 15:50 | NUR ---
PT REFUSED MRIs, MADE AWARE.
--- NOTE | 2024-12-17 16:31 | CONS ---
[facility] CARDIOLOGY CONSULTATION REPORT Date Patient Seen: Dec 17, 2024 Time of Visit: 16:13 Requesting Physician: Mimi ARNDT Reason for Consultation: Elevated troponin History of Present Illness: This is a 64-year-old [place] female with a past medical history of hypertension, morbid obesity who presented to the emergency department with recurrent dizziness. She had initial onset of dizziness the of 12/14/2024. 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 She felt as if the room was spinning and she found it difficult to keep her eyes open. Her symptoms improved if her eyes were closed. She proceeded to go to dinner that evening and her symptoms resolved after about an hour and a half. On 12/16/2024, while at work shortly after 1:00 p.m., she was at her computer and her symptoms of dizziness returned. They were less intense but she went home from work and she was brought to the ER for further assessment later in the afternoon. In the ER, she was found to have a blood pressure up to 218/93. Her EKG demonstrated a normal sinus rhythm, left axis, and a heart rate of 77 beats per minute. Her chest x-ray cardiomegaly but no CHF changes. In addition, her troponin was 83, 80, 97 and 95 prompting cardiology consultation. The patient denies any prior history of HI or coronary artery disease. She offered no complaints of chest pain, orthopnea, PND and has experienced no episodes of external chest discomfort. While in the hospital, she has continues to offer no complaints of chest pain. She admits that she was treated for hypertension approximately 3 years ago during a hospitalization at [facility] for right lower extremity cellulitis. She was prescribed a medication which caused periorbital edema and she subsequently discontinued the medication after 1 month and did not seek any further medical therapy. She has no outpatient PCP. Past Medical History: Hypertension Right lower extremity cellulitis Past Surgical History: None Family History: Mother with a history of hypertension Social History: Patient is single. She is employed at [employer] work Habits: Non smoker Denies alcohol consumption. Admits to on occasion smoking marijuana but none recently. Denies cocaine use or other illicit drug use Home Meds: None Review of Systems: CONST: No fever, fatigue. Positive for 20+ weight gain over the last year. EYES: No recent vision problems. ENT: No congestion, ear pain, or sore throat. C/V: No chest pain, palpitations, or edema. RESP: No cough, congestion, wheezing or shortness of breath. Positive for loud snoring but no daytime somnolence or fatigue GI: No abdominal pain, nausea, vomiting, constipation, or diarrhea. : No incontinence or dysuria. SKIN: No rash. NEURO: Positive for dizziness as described in HPI. No headache, focal numbness or weakness, or seizures. PSYCH: No depression or anxiety. HEME: No abnormal bruising or bleeding. LYMPH: No swollen glands. Physical Examination: GENERAL: No acute distress. HEAD: Normal with no signs of head trauma. EYES: PERRLA, EOMI, conjunctiva and sclera normal. ENT: Hearing grossly intact, normal oropharynx. NECK: Supple without JVD. There is no tenderness, lymphadenopathy, or masses. No thyromegaly. Normal carotid upstrokes without bruits. LUNGS: Clear breath sounds bilaterally. No wheezes, or rhonchi. HEART: Normal rate and rhythm. Normal S1 and S2 without murmurs, gallop or rub. VASC: Peripheral pulses +2 bilaterally, with trace of pedal edema noted ABD: Bowel sounds normal, soft, nontender, no masses, no organomegaly. No audible bruits. : Not examined LYMPH: No lymphadenopathy noted. EXT: No clubbing, cyanosis, trace of pedal edema noted. SKIN: No rashes or lesions noted. NEURO: Awake, alert, and oriented x3. No focal sensory or strength deficits noted. Vital Signs (last 8hr) Date Time Temp Pulse Resp B/P (MAP) Pulse Ox O2 Delivery O2 Flow Rate FiO2 12/17/24 13:11 98.4 78 18 150/90 97 Room Air Laboratory: Hematology Labs: Test 12/17/24 06:29 12/16/24 16:44 Range/Units White Blood Count 7.3 4.8-10.8 K/uL Red Blood Count 4.37 4.00-5.50 MIL/uL Hemoglobin 12.7 12.0-16.0 g/dL Hematocrit 38.5 36-48 % Mean Corpuscular Volume 88.1 79-99 fL Mean Corpuscular Hemoglobin 29.1 27.0-33.0 pg Mean Corpuscular Hemoglobin Concent 33.0 32.0-36.0 g/dL Red Cell Distribution Width 13.5 11.0-15.5 % Platelet Count 111 L 130-400 K/uL Mean Platelet Volume 13.3 H 7.5-10.5 fL Nucleated Red Blood Cells 0.0 0.0-0.19 % Immature Granulocyte % (Auto) 0.4 0-1 % Neutrophils (%) (Auto) 68.3 40.0-77.0 % Lymphocytes (%) (Auto) 18.1 L 21.0-51.0 % Monocytes (%) (Auto) 9.6 3.0-13.0 % Eosinophils (%) (Auto) 3.1 0.0-8.0 % Basophils (%) (Auto) 0.5 0.0-5.0 % Neutrophils # (Auto) 5.2 1.8-7.7 K/uL Lymphocytes # (Auto) 1.4 1.0-4.8 K/uL Monocytes # (Auto) 0.7 0.1-1.0 K/uL Eosinophils # (Auto) 0.24 0.00-0.70 K/uL Basophils # (Auto) 0.04 0.00-0.20 K/uL Absolute Immature Granulocyte (auto 0.03 0-1 K/uL Chemistry Labs: Test 12/17/24 15:54 12/17/24 06:29 12/16/24 16:44 Range/Units Whole Blood Glucose 93 70-110 MG/DL Sodium Level 142 136-145 mmol/L Potassium Level 3.5 3.5-5.1 mmol/L Chloride Level 106 101-111 mmol/L Carbon Dioxide Level 29 21-32 mmol/L Blood Urea Nitrogen 15 7-18 mg/dL Creatinine 0.9 0.5-1.0 mg/dL Glomerular Filtration Rate Calc 71 >90 mL/min Random Glucose 99 70-105 mg/dL Total Calcium 8.4 L 8.5-10.1 mg/dL Phosphorus Level 3.4 2.5-4.9 mg/dL Magnesium Level 1.90 1.80-2.40 mg/dL Troponin I High Sensitivity 95 *H 4-50 ng/L Thyroid Stimulating Hormone (TSH) 1.91 0.36-3.74 uIU/mL Hemoglobin A1c 5.1 4.0-6.0 % Estimated Average Glucose (eAG) 100 70-126 mg/dL Diagnostics / Radiology: Noncontrast CT scan of the head 12/16/2024: FINDINGS: BRAIN: No evidence of acute hemorrhage. No midline shift or extra-axial collections. Mild encephalomalacia with surrounding gliosis in the left temporal lobe. Ill-defined hypodensities with loss of olmedo-white matter differentiation in the bilateral frontal lobes. No CT evidence for an acute infarction. IMPRESSION: * No acute intracranial hemorrhage, or CT evidence for an acute infarct. If clinical concern persist recommend MRI of the brain for further evaluation. * Mild encephalomalacia with surrounding gliosis in the left temporal lobe, likely sequela of prior insult. * Ill-defined hypodensities in the bilateral frontal lobes with loss of olmedo-white matter differentiation, compatible chronic microvascular ischemic disease. Impression and Plan: Hypertension with Hypertensive emergency: -the patient previously had periorbital edema with a prior antihypertensive drug therapy 3 years ago (during hospitalization at [facility]). We will attempt to identify which antihypertensive drug was given at that time -begin amlodipine 5 mg p.o. daily -begin spironolactone 25 mg p.o. daily -discontinue nitro paste (headache) -await 2D echocardiogram results -obtain bilateral renal artery Doppler exam to evaluate for renal artery stenosis -discussed efforts at diet and lifestyle modification after discharge Nonspecific troponin elevation in the setting of hypertensive emergency: No evidence of an acute coronary syndrome with no chest pain and no ischemic EKG changes: -management of hypertension -await 2D echocardiogram results Vertigo: -resolving Morbid obesity Consider outpatient sleep apnea evaluation PHYSICIAN ATTESTATION OF PHYSICIAN MANAGER WOUND DOCUMENTATION: I attest that I was physically present for the mcintyre portions of the service and evaluated the patient with the Physician Chief Technology Officer, and I reviewed and discussed the case with the Physician Chief Technology Officer and made modifications to the Physician Chief Technology Officer's findings and plans of care as documented above MARA LOLYD Dec 17, 2024 16:31 TOMASZ PEREZ MD Dec 19, 2024 15:49
[2024-12-17] MEDS: SPIRONOLACTONE 25 MG TAB PO SCH (17:40)
[2024-12-17] MEDS: amLODIPine 5 MG TAB PO SCH (17:40)
--- NOTE | 2024-12-17 21:28 | HMCSR ---
APPROVED REPORT EXAM: Two-dimensional and M-mode echocardiogram with Doppler and color Doppler. INDICATION ICD: elevated troponin Dizziness and Vertigo 2D Dimensions RVDd4.0 cmLVEF(%)61.3 (>50%)LVED Vol(simp.)130.5 mL IVSd1.0 (0.7-1.1cm)FS(%)33 %LVES Vol(simp.)58.9 mL LVDd5.0 (3.8-5.6cm)LA (2D)4.1 (1.6-4.0cm)LVEF(%, simp.)55 % PWd1.1 (0.7-1.1cm)Ao Root(2D)2.8 (2.0-3.7cm)LA ESV INDEX (BP)38.29 mL/m2 LVDs3.3 (2.5-4.0cm)LVOT diam2.5 (1.8-2.4cm) IVC diam1.7 cm Deformation Strain Apical 4-18.6 % Apical 2-17.2 % Apical 3-18.1 % Global Strain-18.0 % Aortic Valve AoV Vmax1.8 m/Doreen Peak GR13.2 mmHgLVOT Vmax1.1 m/s AoV VTI0.4 mAo Mean GR6.8 mmHgLVOT VTI0.25 m SOL (VMAX)2.93 cm2AVA (VTI) 3.2 cm2 Mitral Valve MV E Vmax73.2 cm/sDECEL Ayel883 ms MV A Vmax88.6 cm/sP 1/2 T100 ms E/A ratio0.8MVA (PHT)2.2 cm2 TDI E/E' Rgjkli49.3E/E' Oivucro62.9 Medial E' Peak V5.52 cm/sLateral E' Peak V5.25 cm/s Pulmonary Valve PV Vmax0.9 m/sPV VTI0.21 mPV Mean GR2.0 mmHg PV Peak GR3.5 mmHg Left Ventricle The left ventricle is normal size. There is normal LV segmental wall motion. GLS is -18%. There is no rmal left ventricular wall thickness. LVEF is 55%. Stage I diastolic dysfunction. Right Ventricle The right ventricle is normal size. The right ventricular systolic function is normal. Atria The left atrium is mildly dilated. The right atrium size is normal. Aortic Valve The aortic valve is normal in structure. No aortic regurgitation is present. There is no aortic valvu lar stenosis. Mitral Valve The mitral valve is normal in structure. There is no mitral valve regurgitation noted. There is no mi tral valve stenosis. Tricuspid Valve The tricuspid valve is normal in structure. There is no tricuspid valve regurgitation noted. Pulmonic Valve The pulmonary valve is normal in structure. There is no pulmonic valvular regurgitation. Great Vessels The aortic root is normal in size. The IVC is normal in size and collapses >50% with inspiration. Pericardium There is no pericardial effusion. Conclusion The left ventricle is normal size. There is normal left ventricular wall thickness. There is normal LV segmental wall motion. GLS is -18%. LVEF is 55%. Stage I diastolic dysfunction. There is no mitral valve regurgitation noted. There is no pericardial effusion.
--- NOTE | 2024-12-17 21:50 | NUR ---
per RN Jose pt refusing exam until tomorrow and is pending a better IV//pt has 20g to the Right Hand
--- NOTE | 2024-12-17 22:25 | NUR ---
patient at this time refusing to get ct of neck, stated that should speak to the MD first in the morning. patient is seen getting physically nerves and shaken. will cont to monitor. Addendum: 12/17/24 at 2236 by TIANNA YODER RN RN event took place at [id number] 12/17/2024
[2024-12-18] VITALS (7 sets, daily range): BP systolic 139–153; BP diastolic 68–92; PULSE 68–74; RESP 16–20; TEMP 97.9–98.6; O2SAT 95–98
[2024-12-18 03:48] LABS: IMMATURE GRANULOCYTE ABSOLUTE 0.03 K/uL (0-1); NUCLEATED RED BLOOD CELLS 0.0 % (0.0-0.19); PLATELET COUNT (AUTO) 109 K/uL (130-400); RED BLOOD CELL COUNT(AUTO) 4.12 MIL/uL (4.00-5.50); RED CELL DISTRIBUTION WIDTH 13.8 % (11.0-15.5); WHITE BLOOD COUNT (AUTO) 6.5 K/uL (4.8-10.8)
[2024-12-18 04:12] LABS: ASPARTATE AMINOTRANSFERASE 26.0 U/L (10-37); CREATININE 0.9 mg/dL (0.5-1.0); GLOMERULAR FILTR. RATE CALC 71.0 mL/min (>90); GLUCOSE,RANDOM 91.0 mg/dL (70-105); SODIUM SERUM 141.0 mmol/L (136-145); TOTAL PROTEIN, SERUM 6.6 g/dL (6.0-8.3); UREA NITROGEN, BLOOD 16.0 mg/dL (7-18)
--- NOTE | 2024-12-18 06:37 | EKG ---
[facility] Test Date: 2024-12-17 Test Time: 08:42:52 Pat Name: CHRIS KC Department: [facility] Room: 423 1 Gender: F Analyzer Sales: PIEDAD : 1960 Requested By: JUVENAL SHAIKH Order Number: [id number] Reading MD: Neftaly Guzmán Measurements Intervals Busy Rate: 77 P: 32 IA: 174 QRS: -30 QRSD: 110 T: 41 QT: 398 QTc: 450 Interpretive Statements Sinus rhythm Left axis deviation Compared to ECG 12/16/2024 18:11:26 Left-axis deviation now present Sinus rhythm no longer present Left ventricular hypertrophy no longer present Q waves no longer present T-wave abnormality no longer present ST (T wave) deviation no longer present Myocardial infarct finding no longer present Electronically Signed On 12-18-2024 17:31:00 CDT by Neftaly Guzmán Please click the below link to view image of tracing.
--- NOTE | 2024-12-18 08:41 | HMCIMG ---
EXAMINATION: DUPLEX ULTRASOUND EXAMINATION OF THE BILATERAL CAROTID AND VERTEBRAL ARTERIES. CLINICAL HISTORY: Dizziness. COMPARISON: None provided. TECHNIQUE: Real-time ultrasound scan of the bilateral carotid and vertebral arteries, 2-D grayscale, with color Doppler flow and spectral waveform analysis. FINDINGS: Color and spectral Doppler interrogation of the carotid vessels on the right demonstrate peak systolic velocities as follows: CCA (Proximal and distal): 108 and 76 cm/s respectively. Bulb: 45 cm/s. ECA: 1140 cm/s. ICA (Proximal, mid, and distal): 76, 82, and 90 cm/s respectively. Vertebral artery demonstrates antegrade flow: 47 cm/s. Right ICA/CCA ratio: 0.8 Peak systolic velocities on the left are as follows: CCA (Proximal and distal): 82 and 71 cm/s respectively. Bulb: 55 cm/s. ECA: 77 cm/s. ICA (Proximal, mid, and distal): 86, 84, and 111 cm/s respectively. Vertebral artery demonstrates antegrade flow: 74 cm/s. Left ICA/CCA ratio: 1.4 Both the common carotid arteries and their branches reveal mild intimal thickening. IMPRESSION: Mild intimal thickening in the bilateral carotid arteries and their branches. There is no significant stenosis or flow limiting lesions. /[place]
--- NOTE | 2024-12-18 09:29 | PN ---
[facility] CARDIOLOGY PROGRESS NOTE Date Patient Seen: Dec 18, 2024 Time of Visit: 09:16 Interval History: This is a 64-year-old Latin-Stateless female with a past medical history of hypertension, morbid obesity who presented to the emergency department with rec urrent dizziness. She was admitted for a hypertensive emergency when blood pressure in the ER was 218/93. In addition she had High sensitivity troponin of 83, 80, 97 and 95 which prompted cardiology consultation. She developed angioedema (lip swelling) with blood pressure medication that was prescribed in 2021 for hypertension and now this has been found to be lisinopril which she was prescribed 20 mg p.o. daily in 2021 for management of her hypertension. She has been out of any antihypertensive drug therapy for about 3 years. The patient denies any prior history of [place] or coronary artery disease. She offered no complaints of chest pain, orthopnea, PND and has experienced no episodes of external chest discomfort. She has undergone further assessment wi th a 2D echocardiogram 12/17/2024 demonstrating an LVEF of 55% and stage I diastolic dysfunction but no significant valvular pathology. She has responded to initiation of amlodipine 5 mg p.o. daily and spironolactone 25 mg p.o. daily and blood pressure has come under improved control today. She is pending bilateral renal artery Doppler results. Overnight, she offers no complaints of orthopnea or PND. She hours no chest pain. Physical Examination: GENERAL: No acute distress. HEAD: Normal with no signs of head trauma. EYES: PERRLA, EOMI, conjunctiva and sclera normal. NECK: Supple without JVD. There is no tenderness, lymphadenopathy, or masses. No thyromegaly. Normal carotid upstrokes without bruits. LUNGS: Clear breath sounds bilaterally. No wheezes, or rhonchi. HEART: Normal rate and rhythm. Normal S1 and S2 without murmurs, gallop or rub. VASC: Peripheral pulses +2 bilaterally. EXT: No clubbing, cyanosis there is trace of pedal edema bilaterally in her lower extremities are thick and fatty NEURO: Awake, alert, and oriented x3. No focal neurological deficits noted. Laboratory: Hematology Labs: Test 12/18/24 03:08 Range/Units White Blood Count 6.5 4.8-10.8 K/uL Red Blood Count 4.12 4.00-5.50 MIL/uL Hemoglobin 12.0 12.0-16.0 g/dL Hematocrit 37.3 36-48 % Mean Corpuscular Volume 90.5 79-99 fL Mean Corpuscular Hemoglobin 29.1 27.0-33.0 pg Mean Corpuscular Hemoglobin Concent 32.2 32.0-36.0 g/dL Red Cell Distribution Width 13.8 11.0-15.5 % Platelet Count 109 L 130-400 K/uL Mean Platelet Volume 13.8 H 7.5-10.5 fL Immature Granulocyte % (Auto) 0.5 0-1 % Neutrophils (%) (Auto) 65.1 40.0-77.0 % Lymphocytes (%) (Auto) 20.4 L 21.0-51.0 % Monocytes (%) (Auto) 9.7 3.0-13.0 % Eosinophils (%) (Auto) 3.7 0.0-8.0 % Basophils (%) (Auto) 0.6 0.0-5.0 % Neutrophils # (Auto) 4.2 1.8-7.7 K/uL Lymphocytes # (Auto) 1.3 1.0-4.8 K/uL Monocytes # (Auto) 0.6 0.1-1.0 K/uL Eosinophils # (Auto) 0.24 0.00-0.70 K/uL Basophils # (Auto) 0.04 0.00-0.20 K/uL Absolute Immature Granulocyte (auto 0.03 0-1 K/uL Nucleated Red Blood Cells 0.0 0.0-0.19 % Chemistry Labs: Test 12/18/24 05:39 12/18/24 03:08 12/17/24 06:29 12/16/24 16:44 Range/Units Whole Blood Glucose 102 70-110 MG/DL Sodium Level 141 136-145 mmol/L Potassium Level 3.4 L 3.5-5.1 mmol/L Chloride Level 107 101-111 mmol/L Carbon Dioxide Level 29 21-32 mmol/L Blood Urea Nitrogen 16 7-18 mg/dL Creatinine 0.9 0.5-1.0 mg/dL Glomerular Filtration Rate Calc 71 >90 mL/min Random Glucose 91 70-105 mg/dL Total Calcium 8.0 L 8.5-10.1 mg/dL Magnesium Level 1.90 1.80-2.40 mg/dL Total Bilirubin 0.5 0.2-1.0 mg/dL Aspartate Amino Transf (AST/SGOT) 26 10-37 U/L Alanine Aminotransferase (ALT/SGPT) 40 12-78 U/L Alkaline Phosphatase 125 50-136 U/L Total Protein 6.6 6.0-8.3 g/dL Albumin 3.0 L 3.5-5.0 g/dL Phosphorus Level 3.4 2.5-4.9 mg/dL Troponin I High Sensitivity 95 *H 4-50 ng/L Thyroid Stimulating Hormone (TSH) 1.91 0.36-3.74 uIU/mL Hemoglobin A1c 5.1 4.0-6.0 % Estimated Average Glucose (eAG) 100 70-126 mg/dL Diagnostics / Radiology: EXAMINATION: DUPLEX ULTRASOUND EXAMINATION OF THE BILATERAL CAROTID AND VERTEBRAL ARTERIES 12/18/2023 CLINICAL HISTORY: Dizziness. FINDINGS: Color and spectral Doppler interrogation of the carotid vessels on the right demonstrate peak systolic velocities as follows: CCA (Proximal and distal): 108 and 76 cm/s respectively. Bulb: 45 cm/s. ECA: 1140 cm/s. ICA (Proximal, mid, and distal): 76, 82, and 90 cm/s respectively. Vertebral artery demonstrates antegrade flow: 47 cm/s. Right ICA/CCA ratio: 0.8 Peak systolic velocities on the left are as follows: CCA (Proximal and distal): 82 and 71 cm/s respectively. Bulb: 55 cm/s. ECA: 77 cm/s. ICA (Proximal, mid, and distal): 86, 84, and 111 cm/s respectively. Vertebral artery demonstrates antegrade flow: 74 cm/s. Left ICA/CCA ratio: 1.4 Both the common carotid arteries and their branches reveal mild intimal thickening. IMPRESSION: Mild intimal thickening in the bilateral carotid arteries and their branches. There is no significant stenosis or flow limiting lesions. /[place] Impression and Plan: Hypertension with Hypertensive emergency: Normal LV systolic function with an LVEF of 55% and stage I diastolic dysfunction on 2D echocardiogram 12/17/2024: Angioedema with lisinopril: -the patient has responded to amlodipine5 mg daily and [id number] mg p.o. daily -she has had hypokalemia with potassium ranging 3.4-3.8, not on diuretic therapy and no other obvious reason for hypokalemia (nausea, vomiting, poor oral intake) -continue to monitor hypertension and if hypokalemia persist despite spironolactone, consider workup for hyperaldosteronism -obtain bilateral renal artery Doppler exam to evaluate for renal artery stenosis -discussed efforts at diet and lifestyle modification after discharge -if no significant renal artery stenosis, cleared for discharge home from cardiology standpoint with amlodipine 5 mg p.o. daily and spironolactone 25 mg p.o. daily -arrange outpatient follow-up at [facility] in 1 week with BMP prior to office visit (labs can be done at [facility] early next week) Nonspecific troponin elevation in the setting of hypertensive emergency: No evidence of an acute coronary syndrome with no chest pain and no ischemic EKG changes: -management of hypertension -no significant abnormalities on 2D echocardiogram Vertigo: -resolved Morbid obesity Consider outpatient sleep apnea evaluation PHYSICIAN ATTESTATION OF PHYSICIAN REGISTRATION REPRESENTATIVE DOCUMENTATION: I attest that I was physically present for the mcintyre portions of the service and evaluated the patient with the Physician Gas Operation Manager, and I reviewed and discussed the case with the Physician Gas Operation Manager and made modifications to the Physician Gas Operation Manager's findings and plans of care as documented above MARA LLOYD Dec 18, 2024 09:29 TOMASZ PEREZ MD Dec 19, 2024 15:51
[2024-12-18] MEDS: PoTASSium chloRIDE 20MEQ ER 20 MEQ ERTAB PO ONE ×2 (09:30→15:41)
[2024-12-18] MEDS ORDERED: IOHEXOL-350 75 ML VIAL IV ONE (10:36)
--- NOTE | 2024-12-18 11:09 | PN ---
[facility] PROGRESS NOTE Date of Service: Dec 18, 2024 Time of Service: 11:[address] Napoles SUBJECTIVE: [ 12/16 Ms. Ochoa is a 64-year-old female with a history of hypertension who presented to [facility] for evaluation of dizziness onset Sunday night. She stated that the symptoms improved but then around 1:00pm she started to feel dizzy again. She stated that the dizziness worsened when she moved around. She reported a sensation and the room spinning. In the ED the patient report the dizziness had been resolved. She denied any chest pain, shortness of breath,head trama, or fever. Three years ago she was hospitalized for cellulitis of her right lower leg and she was started on anti hypertensive medication then. She reports she stopped her medication because it was causing swelling to her lips, but she never followed up with PCP to change her medications. VS: HR 93 bpm, RR 19 bmp, BP 184/102, 99%, 98.4 F. Labs: Chemistry: Troponin 83, Hematology: MPV13.7, Urine: UA: Occult Blood Small, UA: Negative Nitrate, + Leukocyte Est, UA: WBC 26-50, UDS Negative, Head CT: No acute intracranial hemorrhage, or CT evidence for an acute infarct. If clinical concern persist recommend MRI of the brain for further evaluation. Mild encephalomalacia with surrounding gliosis in the left temporal lobe, likely sequela of prior insult. Ill-defined hypodensities in the bilateral frontal lobes with loss of olmedo-white matter differentiation, compatible chronic microvascular ischemic disease. Chest X-Ray: No acute cardiopulmonary disease. In ED the patient received hydralazine 10 mg IV, meclizine 25 mg, NS L bolus, aspirin 325 mg. ED provider requested patient be admitted to the hospital with the diagnosis of hypertensive emergency and elevated troponin. I assessed the patient at bedside in room number ED 18. The patient was sitting on the chair. Breathing was even, unlabored, in no distress. Patient denied chest pain, shortness of breath, any other pain, problem or concern. No redness to the right lower leg where she had recent cellulitis. I informed her of labs, diagnostics, and plan of care. Plan and assessment are listed below. 12/17/24 patient was seen by nurse practitioner and physician during rounding in room 423. Chest x-ray is negative. Head CT showed no acute intracranial hemorrhage or any acute infarct. Mild encephalomalacia with surrounding gliosis in the left temporal lobe likely sequela of prior insult. Ill-defined hydro density in the bilateral frontal lobes with loss of olmedo white matter differentiation compatible chronic microvascular ischemic disease. MRI brain was ordered pending results. Ultrasound carotid was ordered pending results. 2D echo pending results. Patient also received 40 mEq of potassium. UA was positive for leukocytosis pending urine culture. Patient is also pending cardiology evaluation for elevated troponins. We will continue to monitor patient in the meantime. A.m. labs 12/18/24 patient was seen by PAINT GRINDER and physician. 2D echo showed 55% EF stage I diastolic dysfunction. Patient was unable to perform MRI of the brain two to claustrophobia. Patient did agree to perform CTA has a neck. Ultrasound carotid showed mild thickening in bilateral carotid arteries and other branches. Patient was evaluated by the registered account administrator medications per readjusted and ul trasound abdominal artery study was ordered. At this moment we are pending results of CTA head and neck and ultrasound abdominal artery study. Above negative patient will be cleared to be discharged home. In the meantime we will continue to monitor patient. A.m. labs] REVIEW OF SYSTEMS 12-point ROS reviewed with the patient. All pertinent positives mentioned above. Otherwise negative, noncontributory, non-pertinent. PHYSICAL EXAM GENERAL APPEARANCE: The patient is awake, alert, and oriented, in no acute cardiopulmonary distress. NEUROLOGICAL: Cranial nerves II-XII grossly intact. Motor is 5/5 in bilateral upper and lower extremities proximal to distal. No sensory deficits. HEENT: Face is symmetric. Pupils are equal and reactive. Extraocular movements are intact. NECK: Supple. No JVD. No thyromegaly. No submental, submandibular, pre- /postauricular, occipital or supraclavicular lymphadenopathy. CHEST: Normal chest expansion. No Telemetry. LUNGS: Absence of any rales, rhonchi or any wheezing. CARDIOVASCULAR: Regular. S1 and S2 normal. No appreciable rubs, murmurs or gallops. ABDOMEN: Soft, nontender, obesity, and nondistended. There is no rebound, voluntary guarding, or rigidity. : Deferred. No Waite. EXTREMITIES: Non-edematous and not cyanotic. No clubbing. Good capillary refill. SKIN: No skin breakdown. Vital Signs (last 8hr) Date Time Temp Pulse Resp B/P (MAP) Pulse Ox O2 Delivery O2 Flow Rate FiO2 12/18/24 08:00 98.6 74 18 153/89 95 Room Air 12/18/24 03:45 98.1 68 20 139/68 100 Room Air LABS: Laboratory: Test 12/18/24 05:39 12/18/24 03:08 12/17/24 06:29 12/16/24 21:48 Range/Units Whole Blood Glucose 102 70-110 MG/DL White Blood Count 6.5 4.8-10.8 K/uL Red Blood Count 4.12 4.00-5.50 MIL/uL Hemoglobin 12.0 12.0-16.0 g/dL Hematocrit 37.3 36-48 % Mean Corpuscular Volume 90.5 79-99 fL Mean Corpuscular Hemoglobin 29.1 27.0-33.0 pg Mean Corpuscular Hemoglobin Concent 32.2 32.0-36.0 g/dL Red Cell Distribution Width 13.8 11.0-15.5 % Platelet Count 109 L 130-400 K/uL Mean Platelet Volume 13.8 H 7.5-10.5 fL Immature Granulocyte % (Auto) 0.5 0-1 % Neutrophils (%) (Auto) 65.1 40.0-77.0 % Lymphocytes (%) (Auto) 20.4 L 21.0-51.0 % Monocytes (%) (Auto) 9.7 3.0-13.0 % Eosinophils (%) (Auto) 3.7 0.0-8.0 % Basophils (%) (Auto) 0.6 0.0-5.0 % Neutrophils # (Auto) 4.2 1.8-7.7 K/uL Lymphocytes # (Auto) 1.3 1.0-4.8 K/uL Monocytes # (Auto) 0.6 0.1-1.0 K/uL Eosinophils # (Auto) 0.24 0.00-0.70 K/uL Basophils # (Auto) 0.04 0.00-0.20 K/uL Absolute Immature Granulocyte (auto 0.03 0-1 K/uL Nucleated Red Blood Cells 0.0 0.0-0.19 % Sodium Level 141 136-145 mmol/L Potassium Level 3.4 L 3.5-5.1 mmol/L Chloride Level 107 101-111 mmol/L Carbon Dioxide Level 29 21-32 mmol/L Blood Urea Nitrogen 16 7-18 mg/dL Creatinine 0.9 0.5-1.0 mg/dL Glomerular Filtration Rate Calc 71 >90 mL/min Random Glucose 91 70-105 mg/dL Total Calcium 8.0 L 8.5-10.1 mg/dL Magnesium Level 1.90 1.80-2.40 mg/dL Total Bilirubin 0.5 0.2-1.0 mg/dL Aspartate Amino Transf (AST/SGOT) 26 10-37 U/L Alanine Aminotransferase (ALT/SGPT) 40 12-78 U/L Alkaline Phosphatase 125 50-136 U/L Total Protein 6.6 6.0-8.3 g/dL Albumin 3.0 L 3.5-5.0 g/dL Phosphorus Level 3.4 2.5-4.9 mg/dL Troponin I High Sensitivity 95 *H 4-50 ng/L Thyroid Stimulating Hormone (TSH) 1.91 0.36-3.74 uIU/mL Urine Color COLORLESS YELLOW Urine Appearance CLEAR CLEAR Urine pH 6.5 5.0-8.0 Urine Specific [place] 1.004 1.001-1.031 Urine Protein NEGATIVE NEGATIVE mg/dL Urine Glucose (UA) NEGATIVE NEGATIVE mg/dL Urine Ketones NEGATIVE NEGATIVE mg/dL Urine Occult Blood SMALL H NEGATIVE Urine Nitrate NEGATIVE NEGATIVE Urine Bilirubin NEGATIVE NEGATIVE mg/dL Urine Urobilinogen 0.2 0.2-1.0 mg/dL Urine Leukocyte Esterase 500 H NEGATIVE Gareth/uL Urine RBC 0-1 0-1 /HPF Urine WBC 26-50 H 0-1 /HPF Urine Squamous Epithelial Cells RARE 0-2 /HPF Urine Bacteria RARE None Seen /HPF Urine Opiates Screen NEGATIVE NEGATIVE Urine Barbiturates Screen NEGATIVE NEGATIVE Urine Phencyclidine Screen NEGATIVE NEGATIVE Urine Amphetamines Screen NEGATIVE NEGATIVE Urine Benzodiazepines Screen NEGATIVE NEGATIVE Urine Cocaine Screen NEGATIVE NEGATIVE Urine Marijuana (THC) Screen NEGATIVE NEGATIVE Test 12/16/24 16:44 Range/Units Hemoglobin A1c 5.1 4.0-6.0 % Estimated Average Glucose (eAG) 100 70-126 mg/dL Current Medications Medications (Trade) Dose Ordered Sig/Norris Route PRN Reason Start Time Stop Time Status Last Admin Dose Admin Acetaminophen (TYLenol 325MG TAB) 650 mg Q6H PRN PO FEVER/MILD PAIN LEVEL 1-3 12/16/24 22:30 01/15/25 22:29 12/17/24 09:06 650 MG Acetaminophen (TYLenol 650MG SUPPOSITORY) 650 mg Q6H PRN RC FEVER / MILD PAIN 1-3 IF NPO 12/16/24 22:30 01/15/25 22:29 Amlodipine Besylate (NorvASC 5MG TAB) 5 mg DAILY PO 12/17/24 16:30 01/16/25 16:29 12/18/24 07:59 5 MG Aspirin (Aspirin 81mg Chew Tab) 81 mg DAILY PO 12/17/24 09:30 01/16/25 09:29 12/18/24 07:59 81 MG Atorvastatin Calcium (LIPItor 40MG) 40 mg HS PO 12/17/24 21:00 01/16/25 20:59 12/17/24 20:41 40 MG Ceftriaxone Sodium (Rocephin 2gm Inj) 2 gm Q24H IVPB 12/17/24 09:30 12/17/24 15:34 DC Ceftriaxone Sodium (Rocephin 2gm Inj) 2 gm Q24H IVPB 12/17/24 16:00 12/27/24 15:59 12/17/24 15:54 2 GM Docusate Sodium (COLace 100MG CAP) 100 mg BID PRN PO c 12/16/24 22:30 01/15/25 22:29 Famotidine (Pepcid 20mg Tab) 20 mg BID PO 12/17/24 09:30 01/16/25 09:29 12/18/24 07:59 20 MG Heparin Sodium (Porcine) (HEParin 5,000 UNIT VIAL) 5,000 unit Q12H SQ 12/17/24 09:30 01/16/25 09:29 12/18/24 08:00 5,000 UNIT Insulin Human Regular (humuLIN R 100 UNIT/ML 3ML) INSULIN SLIDING SCAL... ACHS SQ 12/17/24 07:30 01/16/25 07:29 Labetalol HCl (TRANdate 20MG SYG) 10 mg Q2H PRN IV SBP GREATER THAN 180 12/16/24 22:30 12/17/24 01:09 DC Labetalol HCl (TRANdate 20MG SYG) 10 mg Q2HPRN PRN IV IF SBP GREATER THAN 160 12/17/24 01:00 01/16/25 00:59 Lactulose (Constulose 20gm/ 30ml Udcup) 20 gm Q6H PRN PO CONSTIPATION 12/16/24 22:30 01/15/25 22:29 Morphine Sulfate (morPHINE 4MG SYG) 4 mg Q4H PRN IVP SEVERE PAIN (7-10) 12/16/24 22:30 12/23/24 22:29 Nitroglycerin (Nitroglycerin 1gm Oint) 1 inch Q8H TD 12/16/24 22:30 12/17/24 16:30 DC 12/17/24 15:59 1 INCH Ondansetron HCl (zoFRAN 4MG INJ) 4 mg Q6H PRN IVP NAUSEA/VOMITING 12/16/24 22:30 01/15/25 22:29 Spironolactone (Aldactone 25mg) 25 mg DAILY PO 12/17/24 16:30 01/16/25 16:29 12/18/24 07:59 25 MG Temazepam (restORIL 15 MG CAP) 15 mg HS PRN PO INSOMNIA/SLEEP 12/16/24 22:30 01/15/25 22:29 DIAGNOSTICS / RADIOLOGY: [ ] ASSESSMENT: Acute dizziness, POA Hypertensive emergency, POA Elevated troponins, POA, rule out ACS Acute complicated cystitis, POA Acute diastolic congestive heart failure EF 55% dysfunction as per 2D echo 12/17/2024 Mild encephalomalacia with surrounding gliosis in the left temporal lobe, likely sequela of prior insult, per CT on 12/16/2024 Ill-defined hypodensities in the bilateral frontal lobes with loss of olmedo-white matter differentiation, compatible chronic microvascular ischemic disease, per C T on 12/16/2024 Acute on chronic kidney disease, GFR71 (last record GFR 68 on 02/10/2020) Noncompliance with hypertensive medications, POA Morbid obesity, BMI 49.0 PLAN: -Admit to medical floor with continuous telemetry monitoring and fall precautions. -Troponin levels and EKG series. Chest x-ray is negative. Head CT showed no acute intracranial hemorrhage or any acute infarct. Mild encephalomalacia with surrounding gliosis in the left temporal lobe likely sequela of prior insult. Ill-defined hydro density in the bilateral frontal lobes with loss of olmedo white matter differentiation compatible chronic microvascular ischemic disease. MRI brain was canceled due to patient unable to perform at CTA head neck pending Ultrasound carotid showed mild thickening in bilateral carotid arteries and other branches 2D echo EF 55% stage I diastolic dysfunction UA was positive for leukocytosis pending urine culture. As per registered account administrator BP medication were adjusted and patient is pending abdominal artery study ultrasound As per registered account administrator if above-stated study negative patient cleared to be discharged home and follow up outpatient one week -Nitroglycerin in q.8 hours. -Aspirin 81 mg p.o. daily. -Atorvastatin 40 mg PO daily. -Education on antihypertensive compliance. -Neuro checks every 4 hours. -PRN medications for pain management, fever, N/V, constipation, hypertension. -Oxygen supplement as needed to maintain oxygen levels equal to or greater than 92% -Blood pressure checks every 4 hours and as needed. -Reconcile home medications once available. Nursing communication placed to obtain home meds by nursing 12/17/2024 -Glucometer checks before meals and at bedtime with insulin regular sliding scale. -Blood pressure checks every 4 hours and as needed. -Monitor renal and liver function. -AM labs. -GI and DVT prophylaxis -Further plan/orders per hospitalization course. ATTESTATION BY PHYSICIAN I have seen and examined the patient. I reviewed the documentation, medical decision making, and treatment plan as noted by the mid-level provider above. I agree with the findings and plan of care. RPATIMA NAPOLES MD, KATARZYNA B HELP DESK ANALYST Dec 18, 2024 11:09
[2024-12-19 03:22] VITALS: BP 148/76; PULSE 63; RESP 18; TEMP 97.9
[2024-12-19 05:34] LABS: IMMATURE GRANULOCYTE ABSOLUTE 0.03 K/uL (0-1); NUCLEATED RED BLOOD CELLS 0.0 % (0.0-0.19); PLATELET COUNT (AUTO) 109 K/uL (130-400); RED BLOOD CELL COUNT(AUTO) 4.34 MIL/uL (4.00-5.50); RED CELL DISTRIBUTION WIDTH 13.7 % (11.0-15.5); WHITE BLOOD COUNT (AUTO) 5.7 K/uL (4.8-10.8)
[2024-12-19 06:07] LABS: ASPARTATE AMINOTRANSFERASE 29.0 U/L (10-37); CREATININE 0.8 mg/dL (0.5-1.0); GLOMERULAR FILTR. RATE CALC 82.0 mL/min (>90); GLUCOSE,RANDOM 93.0 mg/dL (70-105); SODIUM SERUM 141.0 mmol/L (136-145); TOTAL PROTEIN, SERUM 6.9 g/dL (6.0-8.3); UREA NITROGEN, BLOOD 18.0 mg/dL (7-18)
--- NOTE | 2024-12-19 06:35 | HMCIMG ---
EXAMINATION: ULTRASOUND EXAMINATION OF THE KIDNEYS WITH SPECTRAL DOPPLER OF THE RENAL VESSELS. CLINICAL HISTORY: Hypertensive emergency. COMPARISON: Ultrasound of the retroperitoneum dated 02/10/2020. TECHNIQUE: Grayscale and color ultrasound images of the kidneys, and spectral Doppler of the renal arteries are submitted. FINDINGS: The kidneys are normal in caliber, the right kidney measures 10.0 x 4.6 x 3.7 cm and the left kidney measures 12.0 x 4.8 x 6.2 cm in craniocaudal, AP, and transverse dimensions respectively. There is normal renal cortical thickness, and cortical echogenicity. There is no renal calculus or hydronephrosis on the left side. There are two calculi that measure 1.2 cm and 1.4 cm in the right renal mid and lower pole respectively. There is mild right hydronephrosis. There is a simple cortical cyst that measures 2.1 x 1.5 x 1.2 cm in the right renal upper pole. Right Peak systolic velocities within the proximal, mid, and distal main right renal artery are 80, 98, and 61 cm/s respectively (resistive index of 0.81, 0.80, and 0.75). Peak systolic velocities within the right intrarenal upper, mid, and lower pole arteries are 34, 37, and 31 cm/s respectively (resistive index of 0.68, 0.57, and 0.61). Left Peak systolic velocities within the proximal, mid, and distal main left renal artery are 154, 103, and 63 cm/s respectively (resistive index of 0.81, 0.78, and 0.76). Peak systolic velocities within the left intrarenal upper, mid, and lower pole arteries are 40, 55, and 30 cm/s respectively (resistive index of 0.64, 0.66, and 0.53). There is mild tardus-parvus waveform in the left upper pole intrarenal artery. Peak systolic velocity within the abdominal aorta at the level of the renal arteries is 101 cm/s Right renal to aortic ratio: 1.0 Left renal to aortic ratio: 1.5 The urinary bladder is partially distended with normal wall thickness (0.6 cm). IMPRESSION: The RI is more than 0.7 in the main renal arteries reflecting chronic renal disease. Mild tardus-parvus waveform in the left upper pole intrarenal artery. Right renal calculi. Mild right hydronephrosis. Recommend CT urography. Right renal simple cortical cyst. /[place]
--- NOTE | 2024-12-19 07:54 | PN ---
[facility] CARDIOLOGY PROGRESS NOTE Date Patient Seen: Dec 19, 2024 Time of Visit: 07:46 Interval History: This is a 64-year-old Latin-Nigerien female with a past medical history of hypertension, morbid obesity who presented to the emergency department with rec urrent dizziness. She was admitted for a hypertensive emergency when blood pressure in the ER was 218/93. In addition she had High sensitivity troponin of 83, 80, 97 and 95 which prompted cardiology consultation. She developed angioedema (lip swelling) with blood pressure medication that was prescribed in 2021 for hypertension and this has been found to be lisinopril which she was prescribed 20 mg p.o. daily in 2021. She has been out of any antihypertensive drug therapy for about 3 years. The patient denies any prior history of [place] or coronary artery disease. She offered no complaints of chest pain, orthopnea, PND and has experienced no episodes of external chest discomfort. She has undergone further assessment with a 2D echocardiogram 12/17/2024 demonstrating an LVEF of 55% and stage I diastolic dysfunction but no significant valvular pathology. She has responded to initiation of amlodipine 5 mg p.o. daily and spironolactone 25 mg p.o. daily and blood pressure has come under improved control today. Bilateral renal artery doppler exam on 12/17/2024 demonstrated no evidence of significant renal artery stenosis. Blood pressure has come under improved control overnight. No other acute events overnight. Physical Examination: GENERAL: No acute distress. HEAD: Normal with no signs of head trauma. EYES: PERRLA, EOMI, conjunctiva and sclera normal. NECK: Supple without JVD. There is no tenderness, lymphadenopathy, or masses. No thyromegaly. Normal carotid upstrokes without bruits. LUNGS: Clear breath sounds bilaterally. No wheezes, or rhonchi. HEART: Normal rate and rhythm. Normal S1 and S2 without murmurs, gallop or rub. VASC: Peripheral pulses +2 bilaterally. EXT: No clubbing, cyanosis there is trace of pedal edema bilaterally in her lower extremities are thick and fatty NEURO: Awake, alert, and oriented x3. No focal neurological deficits noted. Laboratory: Hematology Labs: Test 12/19/24 05:00 Range/Units White Blood Count 5.7 4.8-10.8 K/uL Red Blood Count 4.34 4.00-5.50 MIL/uL Hemoglobin 12.8 12.0-16.0 g/dL Hematocrit 38.5 36-48 % Mean Corpuscular Volume 88.7 79-99 fL Mean Corpuscular Hemoglobin 29.5 27.0-33.0 pg Mean Corpuscular Hemoglobin Concent 33.2 32.0-36.0 g/dL Red Cell Distribution Width 13.7 11.0-15.5 % Platelet Count 109 L 130-400 K/uL Mean Platelet Volume 13.7 H 7.5-10.5 fL Immature Granulocyte % (Auto) 0.5 0-1 % Neutrophils (%) (Auto) 62.7 40.0-77.0 % Lymphocytes (%) (Auto) 21.2 21.0-51.0 % Monocytes (%) (Auto) 10.3 3.0-13.0 % Eosinophils (%) (Auto) 4.6 0.0-8.0 % Basophils (%) (Auto) 0.7 0.0-5.0 % Neutrophils # (Auto) 3.5 1.8-7.7 K/uL Lymphocytes # (Auto) 1.2 1.0-4.8 K/uL Monocytes # (Auto) 0.6 0.1-1.0 K/uL Eosinophils # (Auto) 0.26 0.00-0.70 K/uL Basophils # (Auto) 0.04 0.00-0.20 K/uL Absolute Immature Granulocyte (auto 0.03 0-1 K/uL Nucleated Red Blood Cells 0.0 0.0-0.19 % Chemistry Labs: Test 12/19/24 05:19 12/19/24 05:00 Range/Units Whole Blood Glucose 89 70-110 MG/DL Sodium Level 141 136-145 mmol/L Potassium Level 4.2 3.5-5.1 mmol/L Chloride Level 108 101-111 mmol/L Carbon Dioxide Level 26 21-32 mmol/L Blood Urea Nitrogen 18 7-18 mg/dL Creatinine 0.8 0.5-1.0 mg/dL Glomerular Filtration Rate Calc 82 >90 mL/min Random Glucose 93 70-105 mg/dL Total Calcium 8.8 8.5-10.1 mg/dL Magnesium Level 2.10 1.80-2.40 mg/dL Total Bilirubin 0.6 0.2-1.0 mg/dL Aspartate Amino Transf (AST/SGOT) 29 10-37 U/L Alanine Aminotransferase (ALT/SGPT) 40 12-78 U/L Alkaline Phosphatase 134 50-136 U/L Total Protein 6.9 6.0-8.3 g/dL Albumin 3.2 L 3.5-5.0 g/dL Diagnostics / Radiology: EXAMINATION: DUPLEX ULTRASOUND EXAMINATION OF THE BILATERAL CAROTID AND VERTEBRAL ARTERIES 12/18/2023 CLINICAL HISTORY: Dizziness. FINDINGS: Color and spectral Doppler interrogation of the carotid vessels on the right demonstrate peak systolic velocities as follows: CCA (Proximal and distal): 108 and 76 cm/s respectively. Bulb: 45 cm/s. ECA: 1140 cm/s. ICA (Proximal, mid, and distal): 76, 82, and 90 cm/s respectively. Vertebral artery demonstrates antegrade flow: 47 cm/s. Right ICA/CCA ratio: 0.8 Peak systolic velocities on the left are as follows: CCA (Proximal and distal): 82 and 71 cm/s respectively. Bulb: 55 cm/s. ECA: 77 cm/s. ICA (Proximal, mid, and distal): 86, 84, and 111 cm/s respectively. Vertebral artery demonstrates antegrade flow: 74 cm/s. Left ICA/CCA ratio: 1.4 Both the common carotid arteries and their branches reveal mild intimal thickening. IMPRESSION: Mild intimal thickening in the bilateral carotid arteries and their branches. There is no significant stenosis or flow limiting lesions. /[place] EXAMINATION: ULTRASOUND EXAMINATION OF THE KIDNEYS WITH SPECTRAL DOPPLER OF THE RENAL VESSELS. 12/17/2024: CLINICAL HISTORY: Hypertensive emergency. FINDINGS: The kidneys are normal in caliber, the right kidney measures 10.0 x 4.6 x 3.7 cm and the left kidney measures 12.0 x 4.8 x 6.2 cm in craniocaudal, AP, and transverse dimensions respectively. There is normal renal cortical thickness, and cortical echogenicity. There is no renal calculus or hydronephrosis on the left side. There are two calculi that measure 1.2 cm and 1.4 cm in the right renal mid and lower pole respectively. There is mild right hydronephrosis. There is a simple cortical cyst that measures 2.1 x 1.5 x 1.2 cm in the right renal upper pole. Right Peak systolic velocities within the proximal, mid, and distal main right renal artery are 80, 98, and 61 cm/s respectively (resistive index of 0.81, 0.80, and 0.75). Peak systolic velocities within the right intrarenal upper, mid, and lower pole arteries are 34, 37, and 31 cm/s respectively (resistive index of 0.68, 0.57, and 0.61). Left Peak systolic velocities within the proximal, mid, and distal main left renal artery are 154, 103, and 63 cm/s respectively (resistive index of 0.81, 0.78, and 0.76). Peak systolic velocities within the left intrarenal upper, mid, and lower pole arteries are 40, 55, and 30 cm/s respectively (resistive index of 0.64, 0.66, and 0.53). There is mild tardus-parvus waveform in the left upper pole intrarenal artery. Peak systolic velocity within the abdominal aorta at the level of the renal arteries is 101 cm/s Right renal to aortic ratio: 1.0 Left renal to aortic ratio: 1.5 The urinary bladder is partially distended with normal wall thickness (0.6 cm). IMPRESSION: The RI is more than 0.7 in the main renal arteries reflecting chronic renal disease. Mild tardus-parvus waveform in the left upper pole intrarenal artery. Right renal calculi. Mild right hydronephrosis. Recommend CT urography. Right renal simple cortical cyst. Impression and Plan: Hypertension with Hypertensive emergency: Normal LV systolic function with an LVEF of 55% and stage I diastolic dysfunction on 2D echocardiogram 12/17/2024: Angioedema with lisinopril: No evidence of renal artery stenosis on renal artery Doppler exam 12/17/2024: -the patient has responded to amlodipine 5 mg daily and spironolactone 25 mg p.o. daily -discussed efforts at diet and lifestyle modification after discharge -cleared for discharge home from cardiology standpoint with amlodipine 5 mg p.o. daily and spironolactone 25 mg p.o. daily -arrange outpatient follow-up at [facility] in 1 week with BMP prior to office visit (labs can be done at [facility] early next week) Nonspecific troponin elevation in the setting of hypertensive emergency: No evidence of an acute coronary syndrome with no chest pain and no ischemic EKG changes: -management of hypertension -no significant abnormalities on 2D echocardiogram Vertigo: -resolved Morbid obesity Consider outpatient sleep apnea evaluation PHYSICIAN ATTESTATION OF PHYSICIAN CROWN WHEEL ASSEMBLER DOCUMENTATION: I attest that I was physically present for the mcintyre portions of the service and evaluated the patient with the Physician Senior Devops Engineer, and I reviewed and discussed the case with the Physician Senior Devops Engineer and made modifications to the Physician Senior Devops Engineer's findings and plans of care as documented above MARA LLOYD Dec 19, 2024 07:54 TOMASZ PEREZ MD Dec 19, 2024 15:54
[2024-12-19] MEDS ORDERED: AMLO-257 PO (07:56)
[2024-12-19] MEDS ORDERED: SPIR25TA6 PO (07:56)
[2024-12-19 08:00] VITALS: BP 147/87; PULSE 63; RESP 19; TEMP 98
--- NOTE | 2024-12-19 09:56 | HMCIMG ---
EXAM: CTA Neck without and with Intravenous Contrast. CLINICAL HISTORY: Dizziness to rule out ischemic disease. TECHNIQUE: Axial CTA images of the neck performed. Coronal and sagittal reformatted images were generated and reviewed. CT scan done according to ALARA (As Low as Reasonably Achievable). CONTRAST: Omnipaque 350, 75ml. COMPARISON: None provided. FINDINGS: Mild atherosclerosis in the aortic arch and bilateral common carotid arteries. No significant plaque disease or narrowing in the caroticovertebral system. Carotid Bulb, ICA, and origin of the ECA are well opacified. Vertebral arteries are well opacified. Jugular veins are well opacified Included lung apices are grossly unremarkable. No acute bony changes. IMPRESSION: 1. Mild atherosclerosis in the aortic arch and bilateral common carotid arteries. No significant plaque disease or narrowing in the caroticovertebral system /[place]
[2024-12-19] MEDS ORDERED: ASPI-1005 PO (10:44)
[2024-12-19] MEDS ORDERED: ATOR40TA69 PO (10:44)
[2024-12-19] MEDS ORDERED: FAMO20TA8 PO (10:44)
--- NOTE | 2024-12-19 10:51 | DS ---
Discharge Summary Hospital Course Summary: DATE OF ADMISSION:[12/16/2024] DATE OF DISCHARGE:[12/19/2024] DISPOSITION:[Home] CONDITION:[Medically stable] CONSULTANTS:[[employer]] FOLLOW UP APPOINTMENTS:[PCP 2 to 3 days. [employer] in one week] PROCEDURES:[None] IMAGING: report attached to summary MICROBIOLOGY: report attached to summary ACTIVITY:[Independent] HOME MEDICATIONS: see [facility] NEW MEDICATIONS:[Amlodipine, aspirin, atorvastatin, famotidine, spironolactone] EMERGENCY INSTRUCTIONS: The patient was instructed to present to the nearest Emergency departmentr or call 911 once their symptoms will return or worsen Biotechnician(s): Patient is 64 years old female with a past medical history of hypertension who came to emergency department for evaluation of dizziness on Sunday night prior coming to the hospital. The symptoms improved within around 1:00 p.m. she started to feel dizzy again. She stated that the dizziness worsened when she mo say around. She reported a sensation and the room spinning. The dizziness in the emergency department has resolved and also denied any chest pain, shortness of breaths, head trauma or fever. Head CT showed no acute intracranial hemorrhage or any acute infarct. Mild encephalomalacia with surrounding gliosis in the left temporal lobe likely sequela of prior insult. Ill-defined hydro density in the bilateral frontal lobes with loss of olmedo white matter differentiation compatible chronic microvascular ischemic disease. There was concerned if the patient might have a stroke we will order MRI of the brain but unfortunately patient refused to two claustrophobia. Chest x-ray showed no acute cardio pulmonary disease. 2D echo was ordered as well and showed EF of 55% stage I diastolic dysfunction. Ultrasound carotid showed mild thickening in bilateral carotid arteries and branches. CTA head and neck was negative. 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 Chronic renal disease. Mild right hydronephrosis. Right renal simple cortical cysts. The results were discussed with the patient and regarding she would like to follow up outpatient with a bail bonding agent. As per Cardiology patient was cleared to be discharged home with amlodipine 5 mg p.o. daily and spironolactone 25 mg p.o. daily . We also recommend that patient follow ups outpatient with the PCP in 2 to 3 days as well as bobbin inspector for evaluation of sleep apnea. Procedure(s): REVIEW OF SYSTEMS 12-point ROS reviewed with the patient. All pertinent positives mentioned above. Otherwise negative, noncontributory, non-pertinent. PHYSICAL EXAM GENERAL APPEARANCE: The patient is awake, alert, and oriented, in no acute cardiopulmonary distress. NEUROLOGICAL: Cranial nerves II-XII grossly intact. Motor is 5/5 in bilateral upper and lower extremities proximal to distal. No sensory deficits. HEENT: Face is symmetric. Pupils are equal and reactive. Extraocular movements are intact. NECK: Supple. No JVD. No thyromegaly. No submental, submandibular, pre- /postauricular, occipital or supraclavicular lymphadenopathy. CHEST: Normal chest expansion. No Telemetry. LUNGS: Absence of any rales, rhonchi or any wheezing. CARDIOVASCULAR: Regular. S1 and S2 normal. No appreciable rubs, murmurs or gallops. ABDOMEN: Soft, nontender, obesity, and nondistended. There is no rebound, voluntary guarding, or rigidity. : Deferred. No Waite. EXTREMITIES: Non-edematous and not cyanotic. No clubbing. Good capillary refill. SKIN: No skin breakdown. Assessment/Plan: ASSESSMENT: Acute dizziness, POA Hypertensive emergency, POA Elevated troponins, POA, rule out ACS Acute complicated cystitis, POA Acute diastolic congestive heart failure EF 55% dysfunction as per 2D echo 12/17/2024 Mild encephalomalacia with surrounding gliosis in the left temporal lobe, likely sequela of prior insult, per CT on 12/16/2024 Ill-defined hypodensities in the bilateral frontal lobes with loss of olmedo-white matter differentiation, compatible chronic microvascular ischemic disease, per CT on 12/16/2024 Acute on chronic kidney disease, GFR71 (last record GFR 68 on 02/10/2020) Noncompliance with hypertensive medications, POA Morbid obesity, BMI 49.0 Time spent arranging discharge: 31-60 minutes ATTESTATION BY PHYSICIAN I have seen and examined the patient. I reviewed the documentation, medical decision making, and treatment plan as noted by the mid-level provider above. I agree with the findings and plan of care. PRATIMA RIVAS MD, [employer] B COFFEE MACHINE TECHNICIAN Dec 19, 2024 10:51
[2024-12-19 12:00] VITALS: BP 115/64; PULSE 67; RESP 19; TEMP 95.6
--- NOTE | 2024-12-19 16:27 | NUR ---
PT DC'D PER MD ORDER.PT AAOX3 , DENIES PAIN. PT RX SENT TO PHARMACY OF CHOICE, PT INSTRUCTED TO F/U WITH CARDIO NEXT WEEK SCHEDULED AND GET LABS DONE SUNDAY. PT STATED UNDERSTANDING. IV REMOVED TIP INTACT. PT ASSISTED DOWN TO FRONT LOBBY BY AUTO WASH BUFFER.
== END 2024-12-19 13:25 | disposition home or self-care (01) | DRG 291 ==
LOC: EDH 16:03 → EDHIP 21:08 → 4DH 12-17 05:30
PROVIDERS: ADMIT Internal Medicine; ATTEND Internal Medicine
DX: I13.0 Hypertensive heart and chronic kidney disease with heart failure and stage 1 through stage 4 chronic kidney disease, or unspecified chronic kidney disease (principal); I50.31 Acute diastolic (congestive) heart failure; I16.1 Hypertensive emergency; Z68.42 Body mass index [BMI] 45.0-49.9, adult; N13.6 Pyonephrosis; E66.01 Morbid (severe) obesity due to excess calories; R42 Dizziness and giddiness; N18.9 Chronic kidney disease, unspecified; G93.89 Other specified disorders of brain; K59.00 Constipation, unspecified; T78.3XXA Angioneurotic edema, initial encounter; Z79.82 Long term (current) use of aspirin; Z79.899 Other long term (current) drug therapy; Z82.49 Family history of ischemic heart disease and other diseases of the circulatory system; Z91.148 Patient's other noncompliance with medication regimen for other reason
CPT/HCPCS: 36415; 70450; 70496; 70498; 71045; 80048; 80053; 80305; 81001; 82948; 83036; 83735; 84100; 84443; 84484; 85025; 85027; 87086; 93005; 93306; 93356; 93880; 93975; 96374; 99285; G0378; J0360; J0696; J1644; J7030; Q9967